=== PATIENT | male | born 1930 | race Caucasian/White ===

== ENCOUNTER 2016-10-14 13:29 | Emergency (ER) | payer MEDICARE, OTHER ==
[~2016-10-14] VITALS: Ht 170.2 cm; Wt 68.0 kg
[~2016-10-14 13:29] MED LIST: AMIO200T2 PO; DOCU240C14 PO; FINA5TAB4 PO; LISI-313 PO; MECL-77 PO; PANT40TA3 PO
[2016-10-14 13:32] VITALS: Ht 170.2 cm; Wt 68.0 kg
[2016-10-14] MEDS ORDERED: SOD CHLORIDE 0.9% 500 ML IV STA (14:46)
[2016-10-14 14:58] LABS: ADD SCAN DIFF NO
[2016-10-14 15:00] LABS: BASOPHILS % 0.2 % (0.0-2.0); EOSINOPHILS % 0.1 % (0.0-7.0); HEMATOCRIT 33.6 % (42.0-52.0); HEMOGLOBIN 10.7 g/dl (14.0-18.0); LYMPHOCYTES # 1.2 10^3/ul (0.8-2.9); LYMPHOCYTES % 7.4 % (15.0-51.0); MEAN CORPUSCULAR HEMOGLOBIN 31.2 pg (29.0-33.0); MEAN CORPUSCULAR HGB CONC 31.8 g/dl (32.0-37.0); MEAN PLATELET VOLUME 9.9 fl (7.4-10.4); MONOCYTE # 0.9 10^3/ul (0.3-0.9); MONOCYTES % 5.5 % (0.0-11.0); NEUTROPHIL # 13.7 10^3/ul (1.6-7.5); NEUTROPHILS % 86.2 % (39.0-77.0); PLATELET COUNT 265 10^3/UL (140-415); RED BLOOD COUNT 3.43 10^6/ul (4.70-6.10); RED CELL DISTRIBUTION WIDTH 13.5 % (11.5-14.5); WHITE BLOOD COUNT 15.8 10^3/ul (4.8-10.8)
--- NOTE | 2016-10-14 15:10 | RADRPT ---
PROCEDURE: XR Chest. CLINICAL INDICATION: Syncope TECHNIQUE: An AP view of the chest was obtained. COMPARISON: Chest x-ray dated 11/17/2013 FINDINGS: There is prominence of the interstitial markings. No pleural effusion or pneumothorax is seen. Th e cardiomediastinal silhouette is mildly enlarged . Calcifications are seen within the aortic arch. There is an ovoid right paratracheal density measuring 3.8 x 2.3 cm. The osseous structures demonst rate postsurgical changes from left shoulder arthroplasty IMPRESSION: 1. Mild prominence of the interstitial markings, may reflect mild underlying interstitial edema or chronic lung changes. No significant interval change. 2. Ovoid right paratracheal density measuring 3.[address] of the chest is recommended for fur ther evaluation. 3. Mild cardiomegaly and aortic atherosclerosis. RPTAT: HH .Georgia Charles MD, MD Date Time Electronically viewed and signed by .Georgia Charles MD, on 10/14/2016 15:10 .G/
[2016-10-14 15:15] LABS: CHLORIDE 104 mmol/L (97-110); SODIUM 142 mmol/L (135-144)
[2016-10-14 15:16] LABS: POTASSIUM 4.7 mmol/L (3.5-5.1)
[2016-10-14 15:18] LABS: CREATININE 2.27 mg/dl (0.61-1.24)
[2016-10-14 15:19] LABS: ANION GAP 19 (8-16); BLOOD UREA NITROGEN 44 mg/dl (7-20); CALCIUM 9.4 mg/dl (8.4-10.2); CARBON DIOXIDE 24 mmol/L (21-31); GLUCOSE 123 mg/dl (70-220)
[2016-10-14 15:42] LABS: TROPONIN-I < 0.012 ng/ml (0.00-0.12)
--- NOTE | 2016-10-14 16:02 | RADRPT ---
PROCEDURE: CT Head without. CLINICAL INDICATION: Headaches status post fall. TECHNIQUE: The study was performed utilizing a multi-slice, multidetector CT scanner. Direct spira l 1 mm axial sections were obtained through the head without the use of intravenous contrast materia l. 1 or more of the following dose reduction techniques were utilized: Automated exposure control, adjustment of the mA and/or kV according to patient's size, iterative reconstruction technique. Co lazaro and sagittal reformations were obtained. The images were reviewed on a PACS workstation. RADIATION DOSE: CTDIvol: 42.7 mGyDLP: 720.2 mGy-cm COMPARISON: No prior studies are available for comparison. FINDINGS: There is no intracranial hemorrhage, extra-axial fluid collection, mass lesion, midline shift or hyd rocephalus. There is mild to moderate prominence of the cerebral sulci, lateral and third ventricle s. There is moderate patchy periventricular and subcortical white matter hypodensity. There is mil d arteriosclerotic calcification of the parasellar internal carotid arteries. The judd-white matter differentiation is preserved. The basal cisterns are patent. The midline structures are intact. The orbits, calvarium and extracranial soft tissues are normal in appearance. The visualized paranas al sinuses, mastoid air cells and middle ear cavities are normally aerated. IMPRESSION: 1. No acute intracranial abnormality. No intracranial hemorrhage, extra-axial fluid collection, ma ss lesion or hydrocephalous. 2. Mild to moderate peripheral and central cerebral volume loss. 3. Moderate patchy periventricular and subcortical white matter hypodensity, likely related to staff climate scientist shannon microangiopathic changes. RPTAT: HGAS .Mark Osuna MD, MD Date Time Electronically viewed and signed by .Mark Osuna MD, MD on 10/14/2016 16:01 .S/
--- NOTE | 2016-10-14 16:21 | ERD ---
ER Documentation Chief Complaint Date/Time DATE: 10/14/16 TIME: 16:21 Chief Complaint fainted , fell backward hit his head on floor , c/o lt side pain HPI Patient is an 86-year-old male with hypertension who presents after he fainted. Please note the history and physical exam is limited secondary to the patient' s recall of the event. The patient lives alone. He "fainted". He does not know how long he was on the floor but had whole-body weakness and pain afterwards. He started new medications yesterday including tamsulosin, famotidine, and Anitiza. The patient has no bleeding. The patient was complaining of chest pain on the left side as well. He did break his glasses with a fall. The patient says that he would prefer to go home today and does not want to stay in the hospital. ROS All systems reviewed and are negative except as per history of present illness. Medications Home Meds Active Scripts Pantoprazole* (Protonix*) 40 Mg Tablet.dr, 40 MG PO DAILY for 28 Days, TAB Prov:DAVIS KIRBY MD 11/07/14 Reported Medications Docusate Calcium* (Docusate Calcium*) 240 Mg Capsule, 240 MG PO DAILY, CAP 11/04/14 Amiodarone Hcl* (Amiodarone Hcl*) 200 Mg Tablet, 200 MG PO DAILY, TAB 11/04/14 Finasteride* (Finasteride*) 5 Mg Tablet, 5 MG PO DAILY, TAB 03/01/14 Meclizine Hcl* (Meclizine Hcl*) 25 Mg Tablet, 25 MG PO DAILY Y for veritigo, TAB 03/01/14 Lisinopril* (Lisinopril*) 5 Mg Tablet, 5 MG PO DAILY, TAB 03/01/14 Allergies Allergies: Coded Allergies: No Known Allergy (Verified , 11/07/14) PMhx/Soc History of Surgery: Yes (Left hip surgery) Anesthesia Reaction: No Hx Neurological Disorder: No Hx Respiratory Disorders: No Hx Cardiac Disorders: No Hx Psychiatric Problems: No Hx Miscellaneous Medical Probl: No Hx Alcohol Use: No Hx Substance Use: No Hx Tobacco Use: No Smoking Status: Never smoker FmHx Family History: No diabetes Physical Exam Vitals Vital Signs Date Time Temp Pulse Resp B/P Pulse Ox O2 Delivery O2 Flow Rate FiO2 10/14/16 16:28 70 16 136/67 96 Room Air 10/14/16 14:56 68 18 120/56 96 Room Air 10/14/16 13:32 98.6 77 18 96/53 96 Physical Exam Const: No acute distress Head: Atraumatic Eyes: Normal Conjunctiva ENT: Normal External Ears, Nose and Mouth. Neck: Full range of motion..~ No meningismus. Resp: Clear to auscultation bilaterally Cardio: Regular rate and rhythm, no murmurs Abd: Soft, non tender, non distended. Normal bowel sounds Skin: No petechiae or rashes Back: No midline or flank tenderness Ext: No cyanosis, or edema Neur: Awake and alert Psych: Normal Mood and Affect Result Diagram: 10/14/16 1440 10/14/16 1440 Results 24 hrs Laboratory Tests Test 10/14/16 14:40 10/14/16 14:55 White Blood Count 15.810^3/ul Red Blood Count 3.4310^6/ul Hemoglobin 10.7g/dl Hematocrit 33.6% Mean Corpuscular Volume 98.0fl Mean Corpuscular Hemoglobin 31.2pg Mean Corpuscular Hemoglobin Concent 31.8g/dl Red Cell Distribution Width 13.5% Platelet Count 50953^3/UL Mean Platelet Volume 9.9fl Neutrophils % 86.2% Lymphocytes % 7.4% Monocytes % 5.5% Eosinophils % 0.1% Basophils % 0.2% Nucleated Red Blood Cells % 0.0/100WBC Neutrophils # 13.710^3/ul Lymphocytes # 1.210^3/ul Monocytes # 0.910^3/ul Eosinophils # 0.010^3/ul Basophils # 0.010^3/ul Nucleated Red Blood Cells # 0.010^3/ul Sodium Level 142mmol/L Potassium Level 4.7mmol/L Chloride Level 104mmol/L Carbon Dioxide Level 24mmol/L Anion Gap 19 Blood Urea Nitrogen 44mg/dl Creatinine 2.27mg/dl Glucose Level 123mg/dl Calcium Level 9.4mg/dl Troponin I < 0.012ng/ml Bedside Glucose 108mg/dL Current Medications Medications (Trade) Dose Ordered Sig/Sylvia Route PRN Reason Start Time Stop Time Status Last Admin Dose Admin Sodium Chloride (NS) 500 ml @ 500 mls/hr Q1H STAT IV 10/14/16 14:46 10/14/16 15:45 DC 10/14/16 15:02 Procedures/MDM EKG read by me: Rate/Rhythm: First-degree block a rate of 77 Intervals: Prolonged AK interval Impression: First-degree block without ischemia CT head shows no skull fracture or intracranial hemorrhage per radiology. Patient is a 86-year-old male with hypertension who presents with a fainting episode. This may be related to the new medications he was given however I did want to admit him to the hospital for cardiac monitoring given the syncope and chest pain. However the patient is refusing. He will be signing out AGAINST MEDICAL ADVICE. The patient has a leukocytosis but at this point I see no signs of obvious infection. He has anemia with a hemoglobin of 10.7 but does not require transfusion. He has chronic renal failure with a creatinine of 2.27 but has had elevated creatinine in the past as well. The patient will be discharged into the care of his daughter who is with him at that time. He can return for any worsening symptoms. He was given 500 mL normal saline fluid bolus. Departure Diagnosis: Primary Impression: Syncope Syncope type: unspecified Qualified Code: R55 - Syncope, unspecified syncope type Additional Impressions: Anemia Anemia type: unspecified type Qualified Code: D64.9 - Anemia, unspecified type Leukocytosis Leukocytosis type: unspecified Qualified Code: D72.829 - Leukocytosis, unspecified type Condition: Fair Patient Instructions: Syncope, Unk Cause Referrals: MOHAN FORTUNE MD (PCP) Additional Instructions: Call your primary care doctor TOMORROW for an appointment during the next 1-2 days.See the doctor sooner or return here if your condition worsens before your appointment time. CHUCK RUIZ MD Oct 14, 2016 16:21
[2016-10-14 16:28] VITALS: BP 136/67; PULSE 70; RESP 16
== END 2016-10-14 16:52 | disposition home or self-care (01) ==
LOC: E/R 13:29
DX: R55 Syncope and collapse (principal); D64.9 Anemia, unspecified; D72.829 Elevated white blood cell count, unspecified; I10 Essential (primary) hypertension
CPT/HCPCS: 36415; 70450; 71010; 80048; 82962; 84484; 85025; 93005; 99285; J7040

== ENCOUNTER 2016-12-09 17:46 | Inpatient (IN) | payer MEDICARE, OTHER ==
[~2016-12-09] VITALS: Ht 170.2 cm; Wt 66.0 kg
[2016-12-09] MEDS ORDERED: SOD CHLORIDE 0.9% 1,000 ML IV STA (19:47)
--- NOTE | 2016-12-09 20:48 | RADRPT ---
PROCEDURE: XR Chest. CLINICAL INDICATION: Abdominal pain. TECHNIQUE: Single frontal view. COMPARISON: 11/17/2013. FINDINGS: There is mild left basilar atelectasis. The lungs are otherwise clear. The heart is enlarged. Calcification is present in the aorta consistent with atherosclerosis. There is no pleural effusion or pneumothorax. There is left shoulder reverse arthroplasty. IMPRESSION: 1. Mild left basilar atelectasis. 2. Cardiomegaly and atherosclerosis. 3. A left shoulder reverse arthroplasty. RPTAT: QQ .Erik Rogers MD, MD Date Time Electronically viewed and signed by .Erik Rogers MD, MD on 12/09/2016 20:47 .R/
[2016-12-09 21:11] LABS: ADD SCAN DIFF NO
[2016-12-09 21:14] LABS: BASOPHILS % 0.3 % (0.0-2.0); EOSINOPHILS # 0.1 10^3/ul (0.0-0.5); EOSINOPHILS % 0.8 % (0.0-7.0); HEMATOCRIT 35.9 % (42.0-52.0); HEMOGLOBIN 10.9 g/dl (14.0-18.0); LYMPHOCYTES # 1.9 10^3/ul (0.8-2.9); LYMPHOCYTES % 18.4 % (15.0-51.0); MEAN CORPUSCULAR HEMOGLOBIN 29.8 pg (29.0-33.0); MEAN CORPUSCULAR HGB CONC 30.4 g/dl (32.0-37.0); MEAN CORPUSCULAR VOLUME 98.1 fl (82.0-101.0); MEAN PLATELET VOLUME 10.4 fl (7.4-10.4); MONOCYTE # 0.9 10^3/ul (0.3-0.9); MONOCYTES % 8.3 % (0.0-11.0); NEUTROPHIL # 7.4 10^3/ul (1.6-7.5); NEUTROPHILS % 71.7 % (39.0-77.0); PLATELET COUNT 276 10^3/UL (140-415); RED BLOOD COUNT 3.66 10^6/ul (4.70-6.10); RED CELL DISTRIBUTION WIDTH 13.5 % (11.5-14.5); WHITE BLOOD COUNT 10.4 10^3/ul (4.8-10.8)
[2016-12-09 21:17] LABS: ADD UMIC YES; UR ASCORBIC ACID NEGATIVE (NEGATIVE); UR BACTERIA FEW /HPF (NONE SEEN); UR BILIRUBIN (Dip) NEGATIVE (NEGATIVE); UR BLOOD (Dip) 1+ mg/dL (NEGATIVE); UR CLARITY SLIGHTLY CLOUDY (CLEAR); UR COLOR YELLOW (YELLOW); UR GLUCOSE (Dip) NEGATIVE (NEGATIVE); UR KETONES (Dip) NEGATIVE (NEGATIVE); UR LEUKOCYTE ESTERASE (Dip) NEGATIVE Leu/ul (NEGATIVE); UR MUCUS FEW /HPF (NONE SEEN); UR NITRITE (Dip) NEGATIVE (NEGATIVE); UR RBC 3 /HPF (0-5); UR SPECIFIC GRAVITY (Dip) 1.018 (1.003-1.030); UR TOTAL PROTEIN (Dip) 1+ mg/dl (NEGATIVE); UR UROBILINOGEN (Dip) NEGATIVE (NEGATIVE)
[2016-12-09 21:42] LABS: ALANINE AMINOTRANSFERASE 24 IU/L (13-69); ALBUMIN 4.7 g/dl (3.3-4.9); ALBUMIN/GLOBULIN RATIO 1.95; ALKALINE PHOSPHATASE 73 IU/L (42-121); ANION GAP 16 (8-16); ASPARTATE AMINO TRANSFERASE 22 IU/L (15-46); BILIRUBIN,INDIRECT 0.1 mg/dl (0-1.1); BILIRUBIN,TOTAL 0.1 mg/dl (0.2-1.3); BLOOD UREA NITROGEN 48 mg/dl (7-20); CALCIUM 9.4 mg/dl (8.4-10.2); CARBON DIOXIDE 21 mmol/L (21-31); CHLORIDE 110 mmol/L (97-110); CREATININE 2.83 mg/dl (0.61-1.24); GLUCOSE 104 mg/dl (70-220); POTASSIUM 5.6 mmol/L (3.5-5.1); SODIUM 141 mmol/L (135-144); TOTAL PROTEIN 7.1 g/dl (6.1-8.1)
[2016-12-09 21:54] LABS: TROPONIN-I < 0.012 ng/ml (0.00-0.12)
[2016-12-09] MEDS ORDERED: CEPHALEXIN 500 MG CAP PO ONE (22:00)
--- NOTE | 2016-12-09 22:26 | ERD ---
ER Documentation Chief Complaint Date/Time DATE: 12/09/16 TIME: 22:10 Chief Complaint dizzy,shaky, back pain,malagon HPI 86-year-old man here for evaluation of near syncopal episode while urinating. He states he felt dizzy afterwards but denies loss of consciousness. He states he has had some intermittent chills and bilateral flank pain. He denies hematuria or dysuria, no blood per rectum or melena, no chest pain or shortness of breath, no vomiting or diarrhea. ROS All systems reviewed and are negative except as per history of present illness. Medications Home Meds Active Scripts Pantoprazole* (Protonix*) 40 Mg Tablet.dr, 40 MG PO DAILY for 28 Days, TAB Prov:DAVIS KIRBY MD 11/07/14 Reported Medications Docusate Calcium* (Docusate Calcium*) 240 Mg Capsule, 240 MG PO DAILY, CAP 11/04/14 Amiodarone Hcl* (Amiodarone Hcl*) 200 Mg Tablet, 200 MG PO DAILY, TAB 11/04/14 Finasteride* (Finasteride*) 5 Mg Tablet, 5 MG PO DAILY, TAB 03/01/14 Meclizine Hcl* (Meclizine Hcl*) 25 Mg Tablet, 25 MG PO DAILY Y for veritigo, TAB 03/01/14 Lisinopril* (Lisinopril*) 5 Mg Tablet, 5 MG PO DAILY, TAB 03/01/14 Allergies Allergies: Coded Allergies: No Known Allergy (Verified , 11/07/14) PMhx/Soc Hypertension, atrial fibrillation rate-controlled with amiodarone, peptic ulcer disease with previous GI bleeding, gastroesophageal reflux disease, BPH, history of a left hip fracture, previous syncope, chronic renal insufficiency with creatinine levels between 1.3-2.3, mild dementia History of Surgery: Yes (Left hip surgery) Anesthesia Reaction: No Hx Neurological Disorder: No Hx Respiratory Disorders: No Hx Cardiac Disorders: No Hx Psychiatric Problems: No Hx Miscellaneous Medical Probl: No Hx Alcohol Use: No Hx Substance Use: No Hx Tobacco Use: No Smoking Status: Unknown if ever smoked FmHx Family History: No diabetes Physical Exam Vitals Vital Signs Date Time Temp Pulse Resp B/P Pulse Ox O2 Delivery O2 Flow Rate FiO2 12/09/16 21:42 65 16 175/106 100 Room Air 12/09/16 17:49 98.7 77 18 137/62 99 Physical Exam GENERAL: Elderly man, well-nourished, appears dehydrated, afebrile HEENT: Dry mucous membranes, pink conjunctiva, no cervical spine tenderness, no scalp contusion NEURO: Alert and oriented 3, cranial nerves II through XII intact bilaterally and normal, pupils equal round reactive to light, no focal deficits or facial asymmetry, gait normal CARDIAC: Regular rate and rhythm, no murmurs rubs or gallops LUNGS: Clear bilaterally no wheezing crackles or stridor ABDOMEN: Soft nontender, no guarding, no rigidity, no rebound, no psoas sign no obturator sign. SKIN: Warm and dry to touch, no abrasions, contusions, or hematomas, no lacerations, no ecchymosis, no target lesions, and without ulcers EXTREMITIES: No clubbing cyanosis or edema, calves are bilaterally symmetrical, no Homans sign, no popliteal cord sign. Distal pulses equal and bilateral PSYCH: Normal affect without agitation or irritability Result Diagram: 12/09/16201912/09/162019 Results 24 hrs Laboratory Tests Test 12/09/16 20:20 White Blood Count 10.410^3/ul Red Blood Count 3.6610^6/ul Hemoglobin 10.9g/dl Hematocrit 35.9% Mean Corpuscular Volume 98.1fl Mean Corpuscular Hemoglobin 29.8pg Mean Corpuscular Hemoglobin Concent 30.4g/dl Red Cell Distribution Width 13.5% Platelet Count 41306^3/UL Mean Platelet Volume 10.4fl Neutrophils % 71.7% Lymphocytes % 18.4% Monocytes % 8.3% Eosinophils % 0.8% Basophils % 0.3% Nucleated Red Blood Cells % 0.0/100WBC Neutrophils # 7.410^3/ul Lymphocytes # 1.910^3/ul Monocytes # 0.910^3/ul Eosinophils # 0.110^3/ul Basophils # 0.010^3/ul Nucleated Red Blood Cells # 0.010^3/ul Urine Color YELLOW Urine Clarity SLIGHTLY CLOUDY Urine pH 5.0 Urine Specific [place] 1.018 Urine Ketones NEGATIVEmg/dL Urine Nitrite NEGATIVEmg/dL Urine Bilirubin NEGATIVEmg/dL Urine Urobilinogen NEGATIVEmg/dL Urine Leukocyte Esterase NEGATIVELeu/ul Urine Microscopic RBC 3/HPF Urine Microscopic WBC 3/HPF Urine Bacteria FEW/HPF Urine Mucus FEW/HPF Urine Hemoglobin 1+mg/dL Urine Glucose NEGATIVEmg/dL Urine Total Protein 1+mg/dl Sodium Level 141mmol/L Potassium Level 5.6mmol/L Chloride Level 110mmol/L Carbon Dioxide Level 21mmol/L Anion Gap 16 Blood Urea Nitrogen 48mg/dl Creatinine 2.83mg/dl Glucose Level 104mg/dl Calcium Level 9.4mg/dl Total Bilirubin 0.1mg/dl Direct Bilirubin 0.00mg/dl Indirect Bilirubin 0.1mg/dl Aspartate Amino Transf (AST/SGOT) 22IU/L Alanine Aminotransferase (ALT/SGPT) 24IU/L Alkaline Phosphatase 73IU/L Troponin I < 0.012ng/ml Total Protein 7.1g/dl Albumin 4.7g/dl Globulin 2.40g/dl Albumin/Globulin Ratio 1.95 Lipase 192U/L Current Medications Medications (Trade) Dose Ordered Sig/Sylvia Route PRN Reason Start Time Stop Time Status Last Admin Dose Admin Sodium Chloride (NS) 1,000 ml @ 1,000 mls/hr Q1H STAT IV 12/09/16 19:47 12/09/16 20:46 DC 12/09/16 20:27 Cephalexin (Keflex) 500 mg ONCE ONCE PO 12/09/16 22:00 12/09/16 22:01 DC Procedures/MDM IV line was established patient was placed on surveillance monitor rhythm strip revealed a sinus rhythm at about 70 bpm with upright P and T waves. Patient was afebrile. For dehydration I administered 2 L normal saline intravenously. EKG performed, read by me revealed a normal sinus rhythm at 65 bpm, normal axis with a first-degree atrial ventricular block and a [place] interval of 246 ms, narrow QRS complex, no concerning ST elevations or depressions noted. One view chest x-ray performed, read by me as no acute infiltrates, no pneumothorax, no end of the diaphragm, and a prosthesis in the left humerus. CBC was unremarkable, electrolytes revealed dehydration and worsening renal function with a BUN/creatinine of 48/2.8, potassium elevated at 5.6, liver function tests normal, troponin negative. Urine analysis concerning for early urinary tract infection. I administered cephalexin 500 mg p.o. Patient experienced a near syncopal episode today while urinating and feels dizzy, he presented dehydrated and was found to have an early urinary tract infection and worsening renal function. He will be admitted to telemetry setting for continued medical management and IV hydration. Critical Care: Time: 34 minutes, this was time separate from other billable procedures. Treatments/Evaluations: Close monitoring and treatment of unstable vital signs, cardiorespiratory, and neurologic status, while maintaining tight balance of fluid, respiratory, and cardiac interventions. Departure Diagnosis: Primary Impression: Near syncope Additional Impressions: Dizziness Dehydration Hyperkalemia Acute kidney injury UTI (urinary tract infection) Urinary tract infection type: acute cystitis Hematuria presence: without hematuria Qualified Code: N30.00 - Acute cystitis without hematuria Condition: MOHAN Sanz MD Dec 09, 2016 22:21
[2016-12-09] MEDS ORDERED: SOD CHLORIDE 0.9% 1,000 ML IV ONE (22:30)
[2016-12-10 08:00] VITALS: BP 148/72; RESP 20
[2016-12-10] MEDS ORDERED: LISI20TA11 PO (10:08)
[2016-12-10] MEDS ORDERED: ASPI81TA3 PO (10:09)
[2016-12-10] MEDS ORDERED: BACL10TA PO (10:09)
[2016-12-10] MEDS ORDERED: MAGNESIUM HYDROXIDE 30ML CUP PO PRN (11:00)
[2016-12-10] MEDS ORDERED: DOCUSATE SODIUM 100 MG CAP PO PRN (11:00)
[2016-12-10] MEDS ORDERED: NACL 0.9% 3 ML SYG IV SCH (11:00)
[2016-12-10] MEDS ORDERED: ONDANSETRON 4 MG INJ IV PRN (11:00)
[2016-12-10] MEDS ORDERED: ACETAMINOPHEN 325 MG TAB PO PRN (11:00)
[2016-12-10] MEDS: SOD CHLORIDE 0.9% 1,000 ML IV SCH (11:43)
[2016-12-10 15:00] VITALS: TEMP 97.9
[2016-12-10 20:00] VITALS: BP 148/70; PULSE 55; RESP 20; Ht 170.2 cm; Wt 66.0 kg
[2016-12-10 20:43] VITALS: PULSE 48
[2016-12-10 22:10] LABS: CALCIUM 8.8 mg/dl (8.4-10.2); CREATININE 1.77 mg/dl (0.61-1.24); POTASSIUM 5.4 mmol/L (3.5-5.1)
[2016-12-10] MEDS ORDERED: NA POLYST SULFON 15 GM/60 ML BTL PO ONE (23:00)
[2016-12-11] VITALS (17 sets, daily range): BP systolic 142–185; BP diastolic 60–87; PULSE 41–82; RESP 16–20
[2016-12-11] MEDS: LISINOPRIL 20 MG TAB PO SCH ×3 (00:32→23:10)
--- NOTE | 2016-12-11 01:16 | HP ---
DATE OF ADMISSION: 12/09/2016 HISTORY OF PRESENT ILLNESS: Dennis Deluna is an elderly male who has a history of anemia, history of gastritis, history of Schatzki ring, leukocytosis , hypertension, history of AFib, peptic ulcer disease, history of BPH, cardiac arrhythmia. The patient presented to this hospital. The patient presented for evaluation of near syncopal episode while urinating. He felt dizzy afterward, and he denies any loss of consciousness. He had some intermittent chills and bilateral flank pain per ER note and no fever or chills. The patient was seen in the emergency room and waiting for a bed. The patient's laboratory data shows WBC 10.4, hematocrit 35.9. Potassium 5.6, sodium 141, BUN 48, creatinine 2.83. The patient's laboratory data are pending for today, and patient is being admitted for further management. PAST MEDICAL HISTORY: As mentioned above. History of Schatzki ring. History of BPH, hypertension, dizziness. ALLERGY HISTORY: NEGATIVE. FAMILY HISTORY: Negative. SOCIAL HISTORY: Negative. MEDICATION HISTORY: 1. Aspirin. 2. Baclofen. 3. Proscar. 4. asa 5. Meclizine. REVIEW OF SYSTEMS: HEENT: Unremarkable. RESPIRATORY: Unremarkable. CARDIOVASCULAR: . ABDOMEN: Dyspepsia. EXTREMITIES: No swelling. CENTRAL NERVOUS SYSTEM: Unremarkable. PHYSICAL EXAMINATION: GENERAL: The patient is thin-looking male, awake, alert. VITAL SIGNS: Stable. HEENT: Head is atraumatic, normocephalic. Pupils are equal, reactive to light. No pallor, conjunctival icterus. NECK: Supple. LUNGS: Clear. CARDIOVASCULAR: S1, S2 normal. ABDOMEN: Soft. Bowel sounds present. No palpable mass. EXTREMITIES: No cyanosis, clubbing or edema. CENTRAL NERVOUS SYSTEM: The patient is awake, alert. No focal deficit. LABORATORY DATA: As mentioned above. IMPRESSION: The patient has: 1. Hyperkalemia. 2. Urinary tract infection. 3. Dehydration. 4. Acute kidney injury. 5. Anemia. 6. History of Schatzki ring. PLAN: UA and culture, sensitivity. IV fluid, antibiotic. The patient will be monitored on telemetry floor. The patient will have workup of dizziness ordered if the patient has further symptoms. Dictated By: DAVIS EMMANUEL/AMARILIS Conf#: [id number] [facility]#: [id number] MTDD
[2016-12-11] MEDS: LEVOFLOXACIN 500 MG TAB PO SCH (06:23)
[2016-12-11] MEDS: SOD CHLORIDE 0.9% 1,000 ML IV SCH (06:24)
[2016-12-11 07:29] LABS: ADD SCAN DIFF NO
[2016-12-11 07:39] LABS: BASOPHILS % 0.4 % (0.0-2.0); EOSINOPHILS # 0.2 10^3/ul (0.0-0.5); EOSINOPHILS % 2.4 % (0.0-7.0); HEMATOCRIT 33.3 % (42.0-52.0); HEMOGLOBIN 10.3 g/dl (14.0-18.0); LYMPHOCYTES # 2.3 10^3/ul (0.8-2.9); LYMPHOCYTES % 23.7 % (15.0-51.0); MEAN CORPUSCULAR HEMOGLOBIN 30.7 pg (29.0-33.0); MEAN CORPUSCULAR HGB CONC 30.9 g/dl (32.0-37.0); MEAN CORPUSCULAR VOLUME 99.1 fl (82.0-101.0); MEAN PLATELET VOLUME 10.5 fl (7.4-10.4); MONOCYTE # 0.8 10^3/ul (0.3-0.9); MONOCYTES % 8.6 % (0.0-11.0); NEUTROPHIL # 6.3 10^3/ul (1.6-7.5); NEUTROPHILS % 64.6 % (39.0-77.0); PLATELET COUNT 221 10^3/UL (140-415); RED BLOOD COUNT 3.36 10^6/ul (4.70-6.10); RED CELL DISTRIBUTION WIDTH 13.5 % (11.5-14.5); WHITE BLOOD COUNT 9.8 10^3/ul (4.8-10.8)
[2016-12-11] MEDS: FINASTERIDE 5 MG TAB PO SCH (08:27)
[2016-12-11] MEDS: ASPIRIN 81 MG TAB PO SCH (08:28)
[2016-12-11] MEDS ORDERED: LISINOPRIL 20 MG TAB PO SCH (09:00)
[2016-12-11] MEDS: hydrALAzine 20 MG INJ IV PRN ×2 (11:41→19:49)
--- NOTE | 2016-12-11 16:02 | CONS ---
Date/Time of Note Date/Time of Note DATE: 12/11/16 TIME: 15:55 Assessment/Plan Assessment/Plan Chief Complaint/Hosp Course IMP: 1.Near syncope/dizziness 2.BRadycardia to 50's and high 40's 3. HTN 4.BPH 5.Schatzki ring 6.anemia 7.REnal failure Recc: -Tele -Continue zestril and add CCB to improve BP control -Check echo -Complete jonathon -check orthostatics -Contnue abx's and f/u cx data Problems: Consultation Date/Type/Reason Admit Date/Time Dec 11, 2016 at 11:17 Date of Consultation: Dec 11, 2016 Type of Consultation: cardiology Reason for Consultation near syncope/bradycardia/HTN Referring Provider: DAVIS KIRBY of Present Illness Dennis Deluna is an 86 y/o male who has a history of anemia, history of gastritis, history of Schatzki ring, leukocytosis, hypertension, history of AFib , peptic ulcer disease, history of BPH, cardiac arrhythmia. The patient presented for evaluation of near syncopal episode while urinating. He felt dizzy afterward, and he denies any loss of consciousness. He had some intermittent chills and bilateral flank pain per ER note and no fever or chills. The patient was seen in the emergency room and waiting for a bed. The patient's laboratory data shows WBC 10.4, hematocrit 35.9. Potassium 5.6, sodium 141, BUN 48, creatinine 2.83. The patient's laboratory data are pending for today, and patient is being admitted for further management. Upon arrival on telemetry was le to 50's but hypertensive Constitutional: no complaints Eyes: no complaints ENT: no complaints Respiratory: no complaints Cardiovascular: no complaints Gastrointestinal: other (nausea) Genitourinary: no complaints Musculoskeletal: bone/joint pain Neurologic: dizziness Psychological: no complaints Immunologic: no complaints Past Medical History Medical History: hypertension, other (BPH, arrythmia, gastritis) Past Surgical History Past Surgical Hx: no surgical history Family History Significant Family History: no pertinent family hx Social History Smoking Status: Never smoker Exam/Review of Systems Vital Signs Vitals Vital Signs Date Time Temp Pulse Resp B/P Pulse Ox O2 Delivery O2 Flow Rate FiO2 12/11/16 15:39 98.3 70 16 161/69 97 12/11/16 07:40 Nasal Cannula 2.0 Intake and Output 12/10/16 12/10/16 12/11/16 15:00 23:00 07:00 Intake Total 1300 ml Output Total 650 ml Balance 650 ml Exam Constitutional: alert Psych: no complaints Head: normocephalic ENMT: mucosa pink and moist Neck: jvd (9 cm water), supple Respiratory: diminished breath sounds Cardiovascular: regular rate and rhythm Gastrointestinal: non-tender, soft Musculoskeletal: muscle weakness (mild generalized) Extremities: edema (none) Neurological: other (No focal deficits) Results Result Diagram: 12/11/16 0710 12/10/16 2134 Results 24 hrs Laboratory Tests Test 12/10/16 21:34 12/11/16 07:10 Sodium Level 143 Potassium Level 5.4 H Chloride Level 114 H Carbon Dioxide Level 24 Anion Gap 10 # Blood Urea Nitrogen 36 #H Creatinine 1.77 #H Glucose Level 99 Calcium Level 8.8 White Blood Count 9.8 Red Blood Count 3.36 L Hemoglobin 10.3 L Hematocrit 33.3 L Mean Corpuscular Volume 99.1 Mean Corpuscular Hemoglobin 30.7 Mean Corpuscular Hemoglobin Concent 30.9 L Red Cell Distribution Width 13.5 Platelet Count 221 Mean Platelet Volume 10.5 H Neutrophils % 64.6 Lymphocytes % 23.7 Monocytes % 8.6 Eosinophils % 2.4 Basophils % 0.4 Nucleated Red Blood Cells % 0.0 Neutrophils # 6.3 Lymphocytes # 2.3 Monocytes # 0.8 Eosinophils # 0.2 Basophils # 0.0 Nucleated Red Blood Cells # 0.0 Medications Medications Current Medications Aspirin (Aspirin) 81 mg DAILY PO Last administered on 12/11/16 08:28; Admin Dose 81 MG; Start 12/11/16 at 09:00 Finasteride (Proscar) 5 mg DAILY PO Last administered on 12/11/16 08:27; Admin Dose 5 MG; Start 12/11/16 at 09:00 Meclizine HCl 25 mg 25 mg TID PRN PO veritigo; Start 12/10/16 at 11:00 Sodium Chloride (NS) 1,000 ml @ 50 mls/hr Q20H IV Last administered on 06:24; Admin Dose 50 MLS/HR; Start 12/10/16 at 11:00 Ondansetron HCl (Zofran Inj) 4 mg Q6H PRN IV NAUSEA AND/OR VOMITING; Start at 11:00 Acetaminophen (Tylenol Tab) 650 mg Q6H PRN PO PAIN LEVEL 1-3 OR FEVER; Start at 11:00 Docusate Sodium (Colace) 100 mg Q12H PRN PO CONSTIPATION; Start 12/10/16 at 11: 00 Magnesium Hydroxide (Milk Of Mag) 30 ml DAILY PRN PO CONSTIPATION; Start at 11:00 Levofloxacin (Levaquin) 500 mg DAILY@06 PO Last administered on 12/11/16 06:23 ; Admin Dose 500 MG; Start 12/11/16 at 06:00 Lisinopril (Zestril) 20 mg DAILY PO Last administered on 12/11/16 06:47; Admin Dose 20 MG; Start 12/11/16 at 00:30 Hydralazine HCl (Apresoline) 10 mg Q6H PRN IV SBP ABOVE 165 Last administered on 12/11/16 11:41; Admin Dose 10 MG; Start 12/11/16 at 11:30 KATY MANN Dec 11, 2016 16:02
--- NOTE | 2016-12-11 18:56 | PN ---
Date/Time of Note Date/Time of Note DATE: 12/11/16 TIME: 18:55 Assessment/Plan VTE Prophylaxis VTE Prophylaxis Intervention: other Lines/Catheters IV [facility]ter [facility] (from [facility]): Saline Lock Urinary Cath still in place: No Assessment/Plan Chief Complaint/Hosp Course IMPRESSION: The patient has: 1. Hyperkalemia. 2. Urinary tract infection. 3. Dehydration. 4. Acute kidney injury. 5. Anemia. 6. History of Schatzki ring. PLAN CK BMP BP MEDS Problems: Subjective 24 Hr Interval Summary Respiratory: no complaints Cardiovascular: no complaints Exam/Review of Systems Vital Signs Vitals Vital Signs Date Time Temp Pulse Resp B/P Pulse Ox O2 Delivery O2 Flow Rate FiO2 12/11/16 16:26 59 12/11/16 15:39 98.3 16 161/69 97 12/11/16 07:40 Nasal Cannula 2.0 Intake and Output 12/10/16 12/10/16 12/11/16 15:00 23:00 07:00 Intake Total 1300 ml Output Total 650 ml Balance 650 ml Exam Neck: supple Respiratory: clear to auscultation Cardiovascular: regular rate and rhythm Gastrointestinal: soft Musculoskeletal: nl extremities to inspection Extremities: normal pulses Results Result Diagram: 12/11/16 0710 12/10/16 2134 Results 24 hrs Laboratory Tests Test 12/10/16 21:34 12/11/16 07:10 12/11/16 16:15 Sodium Level 143 Potassium Level 5.4 H Chloride Level 114 H Carbon Dioxide Level 24 Anion Gap 10 # Blood Urea Nitrogen 36 #H Creatinine 1.77 #H Glucose Level 99 Calcium Level 8.8 White Blood Count 9.8 Red Blood Count 3.36 L Hemoglobin 10.3 L Hematocrit 33.3 L Mean Corpuscular Volume 99.1 Mean Corpuscular Hemoglobin 30.7 Mean Corpuscular Hemoglobin Concent 30.9 L Red Cell Distribution Width 13.5 Platelet Count 221 Mean Platelet Volume 10.5 H Neutrophils % 64.6 Lymphocytes % 23.7 Monocytes % 8.6 Eosinophils % 2.4 Basophils % 0.4 Nucleated Red Blood Cells % 0.0 Neutrophils # 6.3 Lymphocytes # 2.3 Monocytes # 0.8 Eosinophils # 0.2 Basophils # 0.0 Nucleated Red Blood Cells # 0.0 Thyroid Stimulating Hormone (TSH) 1.310 Medications Medications Current Medications Aspirin (Aspirin) 81 mg DAILY PO Last administered on 12/11/16 08:28; Admin Dose 81 MG; Start 12/11/16 at 09:00 Finasteride (Proscar) 5 mg DAILY PO Last administered on 12/11/16 08:27; Admin Dose 5 MG; Start 12/11/16 at 09:00 Meclizine HCl 25 mg 25 mg TID PRN PO veritigo; Start 12/10/16 at 11:00 Sodium Chloride (NS) 1,000 ml @ 50 mls/hr Q20H IV Last administered on 06:24; Admin Dose 50 MLS/HR; Start 12/10/16 at 11:00 Ondansetron HCl (Zofran Inj) 4 mg Q6H PRN IV NAUSEA AND/OR VOMITING; Start at 11:00 Acetaminophen (Tylenol Tab) 650 mg Q6H PRN PO PAIN LEVEL 1-3 OR FEVER; Start at 11:00 Docusate Sodium (Colace) 100 mg Q12H PRN PO CONSTIPATION; Start 12/10/16 at 11: 00 Magnesium Hydroxide (Milk Of Mag) 30 ml DAILY PRN PO CONSTIPATION; Start at 11:00 Levofloxacin (Levaquin) 500 mg DAILY@06 PO Last administered on 12/11/16 06:23 ; Admin Dose 500 MG; Start 12/11/16 at 06:00 Hydralazine HCl (Apresoline) 10 mg Q6H PRN IV SBP ABOVE 165 Last administered on 12/11/16 11:41; Admin Dose 10 MG; Start 12/11/16 at 11:30 Lisinopril (Zestril) 20 mg BID PO ; Start 12/11/16 at 21:00 DAVIS KIRBY MD Dec 11, 2016 18:56
[2016-12-11 19:15] LABS: CREATINE KINASE 71 IU/L (23-200)
[2016-12-11 19:16] LABS: CREATININE 1.64 mg/dl (0.61-1.24); POTASSIUM 4.6 mmol/L (3.5-5.1)
[2016-12-11 19:32] LABS: CK-MB 1.44 ng/ml (0.0-2.4); TROPONIN-I < 0.012 ng/ml (0.00-0.12)
--- NOTE | 2016-12-11 20:21 | RADRPT ---
PROCEDURE: Renal US. CLINICAL INDICATION: Acute kidney injury TECHNIQUE: Multiple sonographic images of the kidneys and bladder were obtained. The images were reviewed on a PACS workstation. COMPARISON: 11/05/2014 FINDINGS: The right kidney measures 9 cm and the left kidney 8.8 cm in length. Renal cortical thinning is sherri arent bilaterally. No renal mass, calculus or hydronephrosis is seen bilaterally. There is appeara nce of mild increased renal cortical echogenicity suggestive of medical renal disease. No abnormali ty of the bladder is seen. Bladder volume is 95 cc. IMPRESSION: Mild increased renal cortical echogenicity suggestive of medical renal disease. Bilateral renal cor tical thinning. No significant change compared to previous study. Please see above. RPTAT: HJES .Bandar Hammond MD, Date Time Electronically viewed and signed by .Bandar Hammond MD, on 12/11/2016 20:21 .S/
[2016-12-12] VITALS (17 sets, daily range): BP systolic 112–200; BP diastolic 57–91; PULSE 45–81; RESP 16–21
[2016-12-12] MEDS: SOD CHLORIDE 0.9% 1,000 ML IV SCH ×2 (03:00→21:43)
[2016-12-12 03:31] LABS: TROPONIN-I 0.032 ng/ml (0.00-0.12)
[2016-12-12 03:56] LABS: CK-MB 1.18 ng/ml (0.0-2.4)
[2016-12-12] MEDS: LEVOFLOXACIN 500 MG TAB PO SCH (05:56)
[2016-12-12] MEDS: hydrALAzine 20 MG INJ IV PRN ×3 (05:57→21:43)
[2016-12-12] MEDS: ASPIRIN 81 MG TAB PO SCH (08:39)
[2016-12-12] MEDS: LISINOPRIL 20 MG TAB PO SCH ×2 (08:39→20:48)
[2016-12-12] MEDS: FINASTERIDE 5 MG TAB PO SCH (08:39)
[2016-12-12 08:57] LABS: TROPONIN-I 0.038 ng/ml (0.00-0.12)
[2016-12-12 08:59] LABS: CK-MB 1.55 ng/ml (0.0-2.4)
[2016-12-12 09:27] LABS: CALCIUM 9.6 mg/dl (8.4-10.2); CREATININE 1.39 mg/dl (0.61-1.24); POTASSIUM 4.5 mmol/L (3.5-5.1)
--- NOTE | 2016-12-12 10:34 | RADRPT ---
Vent Rate: 83 bpm RR Interval: 0 msec KS Interval: 180 msec QRS Duration: 70 msec QT Interval: 406 msec QTC Interval: 477 msec P-R-T Daykin: 30 - 7 - 24 degrees Sinus rhythm with fusion complexes Nonspecific ST abnormality Abnormal ECG Electronically Signed By: Chai Duenas [id number]
--- NOTE | 2016-12-12 17:36 | CONS ---
Date/Time of Note Date/Time of Note DATE: 12/12/16 TIME: 17:32 Assessment/Plan Assessment/Plan Chief Complaint/Hosp Course IMP: 1.Near syncope/dizziness-negative orthostatics-negative trop x 3 2.BRadycardia to 50's and high 40's-now improved 3. HTN 4.BPH 5.Schatzki ring 6.anemia 7.REnal failure Recc: -Tele -Continue zestril and add CCB to improve BP control which has been very labile -F/U echo -Contnue abx's and f/u cx data Problems: Consultation Date/Type/Reason Admit Date/Time Dec 11, 2016 at 11:17 Initial Consult Date 12/11/16 Type of Consultation: cardiology Reason for Consultation near syncope Referring Provider: DAVIS KIRBY MD Exam/Review of Systems Vital Signs Vitals Vital Signs Date Time Temp Pulse Resp B/P Pulse Ox O2 Delivery O2 Flow Rate FiO2 12/12/16 16:01 98.0 71 16 163/77 97 12/12/16 05:00 Room Air 12/11/16 20:00 2.0 Intake and Output 12/11/16 12/11/16 12/12/16 14:59 22:59 06:59 Intake Total 1250 ml Output Total 850 ml Balance 400 ml Exam Review of Systems: CONSTITUTIONAL: No fevers, chills. PULMONARY: No sob CARDIOVASCULAR: No chest pain/palpitations GASTROINTESTINAL: No nausea/vomiting. GENITOURINARY: No hematuria/dysuria. MUSCULOSKELETAL: No myagias/arthalgias. PSYCHIATRIC: The patient denies depression. NEUROLOGIC: No weakness Constitutional: alert Psych: no complaints Head: normocephalic ENMT: mucosa pink and moist Neck: jvd, supple Respiratory: diminished breath sounds Cardiovascular: regular rate and rhythm Gastrointestinal: non-tender, soft Musculoskeletal: muscle tone Extremities: edema (none) Neurological: other (NO focal deficit) Results Result Diagram: 12/11/16 0710 12/12/16 0803 Results 24 hrs Laboratory Tests Test 12/11/16 18:05 12/12/16 01:20 12/12/16 08:03 Sodium Level 142 142 Potassium Level 4.6 4.5 Chloride Level 109 110 Carbon Dioxide Level 25 21 Anion Gap 13 16 Blood Urea Nitrogen 29 H 23 H Creatinine 1.64 H 1.39 H Glucose Level 97 95 Calcium Level 9.0 9.6 Creatine Kinase 71 61 64 Creatine Kinase Index 2.0 1.9 2.4 Creatinine Kinase MB (Mass) 1.44 1.18 1.55 Troponin I < 0.012 0.032 0.038 Medications Medications Current Medications Aspirin (Aspirin) 81 mg DAILY PO Last administered on 12/12/16 08:39; Admin Dose 81 MG; Start 12/11/16 at 09:00 Finasteride (Proscar) 5 mg DAILY PO Last administered on 12/12/16 08:39; Admin Dose 5 MG; Start 12/11/16 at 09:00 Meclizine HCl 25 mg 25 mg TID PRN PO veritigo; Start 12/10/16 at 11:00 Sodium Chloride (NS) 1,000 ml @ 50 mls/hr Q20H IV Last administered on 06:24; Admin Dose 50 MLS/HR; Start 12/10/16 at 11:00 Ondansetron HCl (Zofran Inj) 4 mg Q6H PRN IV NAUSEA AND/OR VOMITING; Start at 11:00 Acetaminophen (Tylenol Tab) 650 mg Q6H PRN PO PAIN LEVEL 1-3 OR FEVER Last administered on 12/11/16 20:29; Admin Dose 650 MG; Start 12/10/16 at 11:00 Docusate Sodium (Colace) 100 mg Q12H PRN PO CONSTIPATION; Start 12/10/16 at 11: 00 Magnesium Hydroxide (Milk Of Mag) 30 ml DAILY PRN PO CONSTIPATION; Start at 11:00 Levofloxacin (Levaquin) 500 mg DAILY@06 PO Last administered on 12/12/16 05:56 ; Admin Dose 500 MG; Start 12/11/16 at 06:00 Hydralazine HCl (Apresoline) 10 mg Q6H PRN IV SBP ABOVE 165 Last administered on 12/12/16 05:57; Admin Dose 10 MG; Start 12/11/16 at 11:30 Lisinopril (Zestril) 20 mg BID PO Last administered on 12/12/16 08:39; Admin Dose 20 MG; Start 12/11/16 at 21:00 KATY MANN Dec 12, 2016 17:36
--- NOTE | 2016-12-12 19:59 | RADRPT ---
Echocardiogram Report Patient Name: CELE ROWE Gender: Male Date: 1930 Study Date: 12-Dec-2016 Laborer/Grade Check: Linda Muse [facility] Location: 5547 Ref. Physician: KATY GR Quality: Technically Difficult Study Procedures: Transthoracic echocardiogram with complete 2D, M-Mode, and doppler examination. Indications: Syncope. 2D/M Mode Doppler Measurement Value Normal Ranges Measurement Value Normal Ranges LVIDd 2D 4.5 3.5 - 5.6 cm MARLON Vmax 1.2 cm2 LVIDs 2D 2.8 2.1 - 4.1 cm MARLON VTI 1.2 cm2 LVPWd 2D 1.5 0.6 - 1.1 cm AV Mean Fernando 2.8 m/sec IVSd 2D 1.5 0.6 - 1.1 cm AV Mean PG 36.1 mmHg AoR Diam 2D 3.2 2.0 - 3.7 cm AV Peak Fernando 4.1 m/sec EDV 2D 92.6 cm3 AV Peak PG 66.6 mmHg ESV 2D 22.9 cm3 AV VTI 88.8 cm LA Dimen 2D 3.3 2.3 - 4.0 cm LVOT Mean Fernando 1.2 m/sec LVOT Diam 2.0 cm LVOT Mean PG 6.9 mmHg LVOT Peak Fernando 1.6 m/sec LVOT Peak PG 10.4 mmHg LVOT VTI 40.1 cm MV E Peak Fernando 0.7 m/sec MV A Peak Fernando 0.6 m/sec MV E/A 1.2 MV Decel Time 261 msec MV Decel Coke 3 MV E/A 1.2 TR Peak Fernando 2.8 m/sec TR Peak PG 31.8 mmHg RVSP 35.0 mmHg Findings Left Ventricle: Normal left ventricular systolic function. Normal left ventricular cavity size. Moderate concentric left ventricular hypertrophy. Ejection fraction is visually estimated at 60 %. Tissue Doppler/Mitral Doppler indices are consistent with impaired relaxation (Stage I diastolic dysfunction). Right Ventricle: Normal right ventricular size. Normal right ventricular systolic function. Left Atrium: Upper limit of normal left atrial size. Right Atrium: The right atrium is normal in size. Mitral Valve: Mitral valve leaflets appear mildly thickened. Mild mitral annular calcification. Mild mitral valve regurgitation. Aortic Valve: Moderate to severe aortic stenosis. Aortic valve Max velocity 4.08 m/sec. Max PG 66.60 mmHg. Mean PG 36.10 mmHg. Aortic valve area 1.20 cm2. Aortic cusps appear moderately calcified. Mild aortic valve regurgitation. Tricuspid Valve: Normal appearance of the tricuspid valve. Estimated peak PA systolic pressure 35 mmHg. There is trace tricuspid regurgitation. Pulmonic Valve: Normal pulmonic valve appearance. Pericardium: Trivial pericardial effusion. Aorta: Normal aortic root. IVC: Normal size and normal respiratory collapse consistent with normal right atrial pressure. Conclusions 1.Normal left ventricular systolic function. Normal left ventricular cavity size. Moderate concentric left ventricular hypertrophy. Ejection fraction is visually estimated at 60 %. Tissue Doppler/Mitral Doppler indices are consistent with impaired relaxation (Stage I diastolic dysfunction). 2.Mild mitral valve regurgitation. 3.Moderate to severe aortic stenosis. Mean PG 36.10 mmHg. Aortic valve area 1.20 cm2. Aortic cusps appear moderately calcified. Mild aortic valve regurgitation. 4.Normal appearance of the tricuspid valve. Estimated peak PA systolic pressure 35 mmHg. There is trace tricuspid regurgitation. Electronically Signed By: Katy Gr 12-Dec-2016 19:58:53 -0700 Patient Name: CELE ROWE Study Date: 12-Dec-2016 [id number]
--- NOTE | 2016-12-12 23:14 | PN ---
Date/Time of Note Date/Time of Note DATE: 12/12/16 TIME: 23:13 Assessment/Plan VTE Prophylaxis VTE Prophylaxis Intervention: other Lines/Catheters IV [facility]from [facility] Peripheral IV Urinary Cath still in place: No Assessment/Plan Chief Complaint/Hosp Course IMPRESSION: The patient has: 1. Hyperkalemia.better 2. Urinary tract infection. 3. Dehydration. 4. Acute kidney injury. 5. Anemia. 6. History of Schatzki ring. 7 htn PLAN CK BMP BP MEDS bpmeds Problems: Subjective 24 Hr Interval Summary Cardiovascular: no complaints, No orthopenea Exam/Review of Systems Vital Signs Vitals Vital Signs Date Time Temp Pulse Resp B/P Pulse Ox O2 Delivery O2 Flow Rate FiO2 12/12/16 20:45 73 198/86 12/12/16 20:06 98.0 21 94 12/12/16 05:00 Room Air 12/11/16 20:00 2.0 Intake and Output 12/11/16 12/11/16 12/12/16 15:00 23:00 07:00 Intake Total 1250 ml Output Total 850 ml Balance 400 ml Exam Neck: supple Respiratory: clear to auscultation Cardiovascular: regular rate and rhythm Gastrointestinal: soft Results Result Diagram: 12/11/16 0710 12/12/16 0803 Results 24 hrs Laboratory Tests Test 12/12/16 01:20 12/12/16 08:03 Creatine Kinase 61 64 Creatine Kinase Index 1.9 2.4 Creatinine Kinase MB (Mass) 1.18 1.55 Troponin I 0.032 0.038 Sodium Level 142 Potassium Level 4.5 Chloride Level 110 Carbon Dioxide Level 21 Anion Gap 16 Blood Urea Nitrogen 23 H Creatinine 1.39 H Glucose Level 95 Calcium Level 9.6 Medications Medications Current Medications Aspirin (Aspirin) 81 mg DAILY PO Last administered on 12/12/16 08:39; Admin Dose 81 MG; Start 12/11/16 at 09:00 Finasteride (Proscar) 5 mg DAILY PO Last administered on 12/12/16 08:39; Admin Dose 5 MG; Start 12/11/16 at 09:00 Meclizine HCl 25 mg 25 mg TID PRN PO veritigo; Start 12/10/16 at 11:00 Sodium Chloride (NS) 1,000 ml @ 50 mls/hr Q20H IV Last administered on 21:43; Admin Dose 50 MLS/HR; Start 12/10/16 at 11:00 Ondansetron HCl (Zofran Inj) 4 mg Q6H PRN IV NAUSEA AND/OR VOMITING; Start at 11:00 Acetaminophen (Tylenol Tab) 650 mg Q6H PRN PO PAIN LEVEL 1-3 OR FEVER Last administered on 12/11/16 20:29; Admin Dose 650 MG; Start 12/10/16 at 11:00 Docusate Sodium (Colace) 100 mg Q12H PRN PO CONSTIPATION; Start 12/10/16 at 11: 00 Magnesium Hydroxide (Milk Of Mag) 30 ml DAILY PRN PO CONSTIPATION; Start at 11:00 Levofloxacin (Levaquin) 500 mg DAILY@06 PO Last administered on 12/12/16 05:56 ; Admin Dose 500 MG; Start 12/11/16 at 06:00 Lisinopril (Zestril) 20 mg BID PO Last administered on 12/12/16 20:48; Admin Dose 20 MG; Start 12/11/16 at 21:00 Amlodipine Besylate (Norvasc) 5 mg DAILY PO ; Start 12/13/16 at 09:00 Hydralazine HCl (Apresoline) 25 mg TID PO ; Start 12/13/16 at 09:00 Losartan Potassium (Cozaar) 25 mg DAILY PO ; Start 12/13/16 at 09:00 Hydralazine HCl (Apresoline) 20 mg Q6H PRN IV SBP>170 Last administered on 12/12 21:43; Admin Dose 20 MG; Start 12/12/16 at 21:30 DAVIS KIRBY MD Dec 12, 2016 23:14
[2016-12-13] VITALS (13 sets, daily range): BP systolic 123–169; BP diastolic 56–79; PULSE 54–77; RESP 18–22
[2016-12-13] MEDS: LEVOFLOXACIN 500 MG TAB PO SCH (06:24)
[2016-12-13] MEDS: AMLODIPINE 5 MG TAB PO SCH (08:08)
[2016-12-13] MEDS: LISINOPRIL 20 MG TAB PO SCH ×2 (08:10→21:31)
[2016-12-13] MEDS: FINASTERIDE 5 MG TAB PO SCH (08:11)
[2016-12-13] MEDS: ASPIRIN 81 MG TAB PO SCH (08:11)
[2016-12-13] MEDS ORDERED: LOSARTAN 25 MG TAB PO SCH (09:00)
[2016-12-13] MEDS ORDERED: SPIRONOLACTONE 25 MG TAB PO SCH (09:00)
--- NOTE | 2016-12-13 14:53 | CONS ---
Date/Time of Note Date/Time of Note DATE: 12/13/16 TIME: 14:45 Assessment/Plan Assessment/Plan Additional Assessment/Plan Dizziness and lightheadedness Hypertension Preserved ejection fraction Moderate aortic stenosis Bradycardia-resolved Acute kidney injury, improving -Our patient is followed by my colleague Dr. Alvarado and I was asked to take over cardiology care. Extensive discussion had with our patient via catering attendant and daughter Karina over the phone at [phone]. Blood pressure trend has improved. Patient currently on lisinopril and losartan. Would DC losartan at the current time. Was complaining of mild dizziness today with getting up out of bed. Decrease Lasix to daily. Given recent hyperkalemia, would DC Aldactone. In discussion with patient's daughter over the phone, there is concern for medication uncompliance as well as frequency of medications and likelihood of future compliance. Patient has been started on Norvasc, would continue and if blood pressure still not well controlled, there is room to increase the dose. Physical therapy evaluation. Consultation Date/Type/Reason Admit Date/Time Dec 11, 2016 at 11:17 Initial Consult Date 12/11/16 Type of Consultation: cardiology Referring Provider: DAVIS KIRBY MD 24 HR Interval Summary Free Text/Dictation Contacted by patient's family to take over caregiving patient of my colleague Dr. alvarado. Patient currently feeling better. Denies shortness of breath. Did have episode of lightheadedness when going to the commode and coming back into bed but feels better now. Denies any chest pain or shortness of breath. Exam/Review of Systems Vital Signs Vitals Vital Signs Date Time Temp Pulse Resp B/P Pulse Ox O2 Delivery O2 Flow Rate FiO2 12/13/16 12:31 68 12/13/16 12:20 98.6 20 123/56 94 12/12/16 05:00 Room Air 12/11/16 20:00 2.0 Intake and Output 12/12/16 12/12/16 12/13/16 15:00 23:00 07:00 Intake Total 1220 ml 925 ml Output Total 1650 ml 625 ml Balance -430 ml 300 ml Exam No apparent distress Constitutional: alert, oriented, well developed Head: normocephalic Neck: supple Respiratory: other (Coarse breath sounds bilaterally, no wheezing) Cardiovascular: other (S1-S2 heard), regular rate and rhythm, systolic murmur Gastrointestinal: bowel sounds, non-tender, other (No guarding), soft Extremities: other (No significant edema) Results Result Diagram: 12/11/16 0710 12/12/16 0803 Medications Medications Current Medications Aspirin (Aspirin) 81 mg DAILY PO Last administered on 12/13/16 08:11; Admin Dose 81 MG; Start 12/11/16 at 09:00 Finasteride (Proscar) 5 mg DAILY PO Last administered on 12/13/16 08:11; Admin Dose 5 MG; Start 12/11/16 at 09:00 Meclizine HCl 25 mg 25 mg TID PRN PO veritigo; Start 12/10/16 at 11:00 Sodium Chloride (NS) 1,000 ml @ 50 mls/hr Q20H IV Last administered on 21:43; Admin Dose 50 MLS/HR; Start 12/10/16 at 11:00 Ondansetron HCl (Zofran Inj) 4 mg Q6H PRN IV NAUSEA AND/OR VOMITING; Start at 11:00 Acetaminophen (Tylenol Tab) 650 mg Q6H PRN PO PAIN LEVEL 1-3 OR FEVER Last administered on 12/11/16 20:29; Admin Dose 650 MG; Start 12/10/16 at 11:00 Docusate Sodium (Colace) 100 mg Q12H PRN PO CONSTIPATION; Start 12/10/16 at 11: 00 Magnesium Hydroxide (Milk Of Mag) 30 ml DAILY PRN PO CONSTIPATION; Start at 11:00 Levofloxacin (Levaquin) 500 mg DAILY@06 PO Last administered on 12/13/16 06:24 ; Admin Dose 500 MG; Start 12/11/16 at 06:00 Lisinopril (Zestril) 20 mg BID PO Last administered on 12/13/16 08:10; Admin Dose 20 MG; Start 12/11/16 at 21:00 Amlodipine Besylate (Norvasc) 5 mg DAILY PO Last administered on 12/13/16 08: 08; Admin Dose 5 MG; Start 12/13/16 at 09:00 Hydralazine HCl (Apresoline) 25 mg TID PO Last administered on 12/13/16 12:28 ; Admin Dose 25 MG; Start 12/13/16 at 09:00 Losartan Potassium (Cozaar) 25 mg DAILY PO Last administered on 12/13/16 08:11 ; Admin Dose 25 MG; Start 12/13/16 at 09:00 Hydralazine HCl (Apresoline) 20 mg Q6H PRN IV SBP>170 Last administered on 12/12 21:43; Admin Dose 20 MG; Start 12/12/16 at 21:30 Barron Hilliard DO Dec 13, 2016 14:52
[2016-12-13] MEDS: MECLIZINE 25 MG TAB PO PRN (15:42)
[2016-12-13] MEDS: SOD CHLORIDE 0.9% 1,000 ML IV SCH (17:49)
[2016-12-13] MEDS: hydrALAzine 20 MG INJ IV PRN (19:39)
--- NOTE | 2016-12-13 21:16 | PN ---
Date/Time of Note Date/Time of Note DATE: 12/13/16 TIME: 21:15 Assessment/Plan VTE Prophylaxis VTE Prophylaxis Intervention: other Lines/Catheters [facility] Peripheral IV Urinary Cath still in place: No Assessment/Plan Chief Complaint/Hosp Course IMPRESSION: The patient has: 1. Hyperkalemia.better 2. Urinary tract infection. 3. Dehydration. 4. Acute kidney injury. 5. Anemia. 6. History of Schatzki ring. 7 htn PLAN CK BMP BP MEDS Problems: Subjective 24 Hr Interval Summary Cardiovascular: no complaints Gastrointestinal: no complaints Genitourinary: no complaints Musculoskeletal: no complaints Exam/Review of Systems Vital Signs Vitals Vital Signs Date Time Temp Pulse Resp B/P Pulse Ox O2 Delivery O2 Flow Rate FiO2 12/13/16 20:15 97.7 76 22 161/78 96 12/12/16 05:00 Room Air 12/11/16 20:00 2.0 Intake and Output 12/12/16 12/12/16 12/13/16 15:00 23:00 07:00 Intake Total 1220 ml 925 ml Output Total 1650 ml 625 ml Balance -430 ml 300 ml Exam Neck: supple Respiratory: clear to auscultation Cardiovascular: regular rate and rhythm Gastrointestinal: soft Musculoskeletal: nl extremities to inspection Results Result Diagram: 12/11/16 0710 12/12/16 0803 Medications Medications Current Medications Aspirin (Aspirin) 81 mg DAILY PO Last administered on 12/13/16 08:11; Admin Dose 81 MG; Start 12/11/16 at 09:00 Finasteride (Proscar) 5 mg DAILY PO Last administered on 12/13/16 08:11; Admin Dose 5 MG; Start 12/11/16 at 09:00 Meclizine HCl 25 mg 25 mg TID PRN PO veritigo Last administered on 12/13/16 15 :42; Admin Dose 25 MG; Start 12/10/16 at 11:00 Sodium Chloride (NS) 1,000 ml @ 50 mls/hr Q20H IV Last administered on 17:49; Admin Dose 50 MLS/HR; Start 12/10/16 at 11:00 Ondansetron HCl (Zofran Inj) 4 mg Q6H PRN IV NAUSEA AND/OR VOMITING; Start at 11:00 Acetaminophen (Tylenol Tab) 650 mg Q6H PRN PO PAIN LEVEL 1-3 OR FEVER Last administered on 12/11/16 20:29; Admin Dose 650 MG; Start 12/10/16 at 11:00 Docusate Sodium (Colace) 100 mg Q12H PRN PO CONSTIPATION; Start 12/10/16 at 11: 00 Magnesium Hydroxide (Milk Of Mag) 30 ml DAILY PRN PO CONSTIPATION; Start at 11:00 Levofloxacin (Levaquin) 500 mg DAILY@06 PO Last administered on 12/13/16 06:24 ; Admin Dose 500 MG; Start 12/11/16 at 06:00 Lisinopril (Zestril) 20 mg BID PO Last administered on 12/13/16 08:10; Admin Dose 20 MG; Start 12/11/16 at 21:00 Amlodipine Besylate (Norvasc) 5 mg DAILY PO Last administered on 12/13/16 08: 08; Admin Dose 5 MG; Start 12/13/16 at 09:00 Hydralazine HCl (Apresoline) 20 mg Q6H PRN IV SBP>170 Last administered on 12/13 19:39; Admin Dose 20 MG; Start 12/12/16 at 21:30 Hydralazine HCl (Apresoline) 10 mg Q8H PRN PO sbp>160; Start 12/13/16 at 15:00 DAVIS KIRBY MD Dec 13, 2016 21:16
[2016-12-14] VITALS (14 sets, daily range): BP systolic 131–180; BP diastolic 58–86; PULSE 56–82; RESP 16–22
[2016-12-14] MEDS: LEVOFLOXACIN 500 MG TAB PO SCH (06:29)
[2016-12-14 08:07] LABS: BASOPHILS % 0.3 % (0.0-2.0); EOSINOPHILS # 0.2 10^3/ul (0.0-0.5); EOSINOPHILS % 2.1 % (0.0-7.0); HEMATOCRIT 35.9 % (42.0-52.0); HEMOGLOBIN 11.3 g/dl (14.0-18.0); LYMPHOCYTES # 2.5 10^3/ul (0.8-2.9); LYMPHOCYTES % 25.5 % (15.0-51.0); MEAN CORPUSCULAR HGB CONC 31.5 g/dl (32.0-37.0); MEAN CORPUSCULAR VOLUME 95.2 fl (82.0-101.0); MEAN PLATELET VOLUME 10.6 fl (7.4-10.4); MONOCYTES % 9.8 % (0.0-11.0); NEUTROPHIL # 6.2 10^3/ul (1.6-7.5); PLATELET COUNT 252 10^3/UL (140-415); RED BLOOD COUNT 3.77 10^6/ul (4.70-6.10); RED CELL DISTRIBUTION WIDTH 13.5 % (11.5-14.5); WHITE BLOOD COUNT 9.9 10^3/ul (4.8-10.8)
[2016-12-14 08:12] LABS: ADD SCAN DIFF NO
[2016-12-14 08:38] LABS: CALCIUM 9.2 mg/dl (8.4-10.2); CREATININE 1.46 mg/dl (0.61-1.24); POTASSIUM 4.5 mmol/L (3.5-5.1)
--- NOTE | 2016-12-14 09:02 | RADRPT ---
PROCEDURE: XR Chest 1 view. CLINICAL INDICATION: Shortness of breath. TECHNIQUE: AP views of the chest were obtained. COMPARISON: December 09, 2016 FINDINGS: The heart is large. Calcified atherosclerosis is noted in the aorta. The left lung base is obscured by overlying wires. The lungs are hypoinflated. Atelectasis is noted in the bilateral lower lobes . No consolidations are identified. No pneumothorax is seen. The osseous structures are osteopeni c, but appear grossly intact. Left shoulder replacement is seen. IMPRESSION: Cardiomegaly with calcified atherosclerosis in the aorta. Limited exam with the left lung base obscured by overlying wires. Repeat exam with the wires moved should be considered. Hypoinflated lungs. Atelectasis in the bilateral lower lobes. RPTAT: AA .Kiet Mae MD, Date Time Electronically viewed and signed by .Kiet Mae MD, MD on 12/14/2016 09:02 .P/
[2016-12-14] MEDS: LISINOPRIL 20 MG TAB PO SCH ×2 (09:04→21:06)
[2016-12-14] MEDS: ASPIRIN 81 MG TAB PO SCH (09:04)
[2016-12-14] MEDS: AMLODIPINE 5 MG TAB PO SCH ×2 (09:04→21:07)
[2016-12-14] MEDS: hydrALAzine 20 MG INJ IV PRN (09:05)
[2016-12-14] MEDS: FINASTERIDE 5 MG TAB PO SCH (09:11)
[2016-12-14] MEDS: MECLIZINE 25 MG TAB PO PRN ×2 (10:39→21:06)
--- NOTE | 2016-12-14 11:01 | RADRPT ---
Echocardiogram Report Patient Name: CELE ROWE Gender: Male Date: 1930 Study Date: 14-Dec-2016 Budget Report Clerk: Katina Garrison [facility] Location: 5547 Ref. Physician: BARRON HILLIARD Quality: Technically Difficult Study Procedures: Transthoracic echocardiogram examination. Indications: Aortic Valve Disease. 2D/M Mode Doppler Measurement Value Normal Range Measurement Value Normal Range LVOT Diam 2.0 cm MARLON Vmax 1.3 cm2 LVOT Area 3.1 cm2 MARLON VTI 1.4 cm2 AV Mean Fernando 2.2 m/sec AV Mean PG 23.0 mmHg AV Peak Fernando 3.2 m/sec AV Peak PG 42.0 mmHg AV VTI 75.3 cm AI Peak PG 28.0 mmHg AI Peak Fernando 2.6 m/sec LVOT Mean Fernando 1.0 m/sec LVOT Mean PG 4.0 mmHg LVOT Peak Fernando 1.3 m/sec LVOT Peak PG 7.0 mmHg LVOT VTI 32.6 cm Findings Left Ventricle: Normal left ventricular systolic function. The left ventricular ejection fraction is visually estimated at 60 %. Aortic Valve: Moderate aortic stenosis. Aortic valve Max velocity 3.23 m/sec. Max PG 42 mmHg. Mean PG 25mmHg. Aortic valve area 1.30 cm2. Aortic cusps appear moderately calcified. Mild aortic regurgitation. Pericardium: Trivial effusion. Conclusions Normal left ventricular systolic function. The left ventricular ejection fraction is visually estimated at 60 %. Moderate aortic stenosis. Aortic cusps appear moderately calcified. Mild aortic regurgitation. Electronically Signed By: Barron Hilliard 14-Dec-2016 11:00:56 -9121 Patient Name: CELE ROWE Study Date: 14-Dec-2016 [id number]
--- NOTE | 2016-12-14 11:24 | CONS ---
Date/Time of Note Date/Time of Note DATE: 12/14/16 TIME: 11:20 Assessment/Plan Assessment/Plan Additional Assessment/Plan Dizziness and lightheadedness Hypertension Preserved ejection fraction Moderate aortic stenosis Bradycardia-resolved Acute kidney injury, improving -Initial echocardiogram reviewed with suboptimal imaging of aortic valve. Repeat echocardiogram performed demonstrates aortic valve does open. Aortic valve stenosis likely mild to moderate. There is normal left ventricular systolic function. I am concerned his dizziness is not fully related to his blood pressure or cardiac issues and possibly secondary to his vertigo. Blood pressure trend has improved but still remains elevated, would increase Norvasc to twice daily dosing. Continue physical therapy. Chest x-ray with no evidence of significant volume overload. Heart rate trend improved on telemetry , no AV livia blocking agents at the current time. Diuretics have been stopped. Consultation Date/Type/Reason Admit Date/Time Dec 11, 2016 at 11:17 Initial Consult Date 12/11/16 Type of Consultation: cardiology Referring Provider: DAVIS KIRBY MD 24 HR Interval Summary Free Text/Dictation Patient complaining of mild dizziness today and appears positional with head movements. Improved after meclizine. Denies current shortness of breath or chest pain. Overall feeling better compared to yesterday Exam/Review of Systems Vital Signs Vitals Vital Signs Date Time Temp Pulse Resp B/P Pulse Ox O2 Delivery O2 Flow Rate FiO2 12/14/16 10:00 82 155/69 12/14/16 08:43 98.0 18 98 12/13/16 23:45 Room Air 12/11/16 20:00 2.0 Intake and Output 12/13/16 12/13/16 12/14/16 15:00 23:00 07:00 Intake Total 1000 ml Output Total 200 ml Balance 1000 ml -200 ml Exam No apparent distress Constitutional: alert, oriented Head: normocephalic Neck: supple Respiratory: clear to auscultation, normal air movement Cardiovascular: other, regular rate and rhythm, systolic murmur Gastrointestinal: bowel sounds, non-tender, soft Extremities: other (No edema) Results Result Diagram: 12/14/16 0650 12/14/16 0650 Results 24 hrs Laboratory Tests Test 12/14/16 06:50 White Blood Count 9.9 Red Blood Count 3.77 L Hemoglobin 11.3 L Hematocrit 35.9 L Mean Corpuscular Volume 95.2 Mean Corpuscular Hemoglobin 30.0 Mean Corpuscular Hemoglobin Concent 31.5 L Red Cell Distribution Width 13.5 Platelet Count 252 Mean Platelet Volume 10.6 H Neutrophils % 62.0 Lymphocytes % 25.5 Monocytes % 9.8 Eosinophils % 2.1 Basophils % 0.3 Nucleated Red Blood Cells % 0.0 Neutrophils # 6.2 Lymphocytes # 2.5 Monocytes # 1.0 H Eosinophils # 0.2 Basophils # 0.0 Nucleated Red Blood Cells # 0.0 Sodium Level 139 Potassium Level 4.5 Chloride Level 107 Carbon Dioxide Level 25 Anion Gap 12 Blood Urea Nitrogen 21 H Creatinine 1.46 H Glucose Level 94 Calcium Level 9.2 Magnesium Level 1.7 Medications Medications Current Medications Aspirin (Aspirin) 81 mg DAILY PO Last administered on 12/14/16 09:04; Admin Dose 81 MG; Start 12/11/16 at 09:00 Finasteride (Proscar) 5 mg DAILY PO Last administered on 12/14/16 09:11; Admin Dose 5 MG; Start 12/11/16 at 09:00 Meclizine HCl 25 mg 25 mg TID PRN PO veritigo Last administered on 12/14/16 10 :39; Admin Dose 25 MG; Start 12/10/16 at 11:00 Sodium Chloride (NS) 1,000 ml @ 50 mls/hr Q20H IV Last administered on 17:49; Admin Dose 50 MLS/HR; Start 12/10/16 at 11:00 Ondansetron HCl (Zofran Inj) 4 mg Q6H PRN IV NAUSEA AND/OR VOMITING; Start at 11:00 Acetaminophen (Tylenol Tab) 650 mg Q6H PRN PO PAIN LEVEL 1-3 OR FEVER Last administered on 12/11/16 20:29; Admin Dose 650 MG; Start 12/10/16 at 11:00 Docusate Sodium (Colace) 100 mg Q12H PRN PO CONSTIPATION; Start 12/10/16 at 11: 00 Magnesium Hydroxide (Milk Of Mag) 30 ml DAILY PRN PO CONSTIPATION; Start at 11:00 Levofloxacin (Levaquin) 500 mg DAILY@06 PO Last administered on 12/14/16 06:29 ; Admin Dose 500 MG; Start 12/11/16 at 06:00 Lisinopril (Zestril) 20 mg BID PO Last administered on 12/14/16 09:04; Admin Dose 20 MG; Start 12/11/16 at 21:00 Amlodipine Besylate (Norvasc) 5 mg DAILY PO Last administered on 12/14/16 09: 04; Admin Dose 5 MG; Start 12/13/16 at 09:00 Hydralazine HCl (Apresoline) 20 mg Q6H PRN IV SBP>170 Last administered on 12/14 09:05; Admin Dose 20 MG; Start 12/12/16 at 21:30 Hydralazine HCl (Apresoline) 10 mg Q8H PRN PO sbp>160 Last administered on 12/13 23:45; Admin Dose 10 MG; Start 12/13/16 at 15:00 Barron Hilliard DO Dec 14, 2016 11:24
[2016-12-14] MEDS ORDERED: MAGNESIUM SULFATE 2 GM/50 ML 50 ML IVPB ONE (11:30)
--- NOTE | 2016-12-14 13:24 | PN ---
Date/Time of Note Date/Time of Note DATE: 12/14/16 TIME: 13:22 Assessment/Plan VTE Prophylaxis VTE Prophylaxis Intervention: ambulation, SCD's Lines/Catheters IV Catheter Type (from Nrs): Peripheral IV Urinary Cath still in place: No Assessment/Plan Chief Complaint/Hosp Course 1. Hyperkalemia.better 2. Urinary tract infection. 3. Dehydration. 4. Acute kidney injury. 5. Anemia. 6. History of Schatzki ring. 7. Hypertension, controlled Problems: Assessment/Plan 1,. continue current regime Subjective 24 Hr Interval Summary Constitutional: improved, no complaints Genitourinary: no complaints Exam/Review of Systems Vital Signs Vitals Vital Signs Date Time Temp Pulse Resp B/P Pulse Ox O2 Delivery O2 Flow Rate FiO2 12/14/16 12:27 78 12/14/16 11:46 98.1 19 131/58 94 12/13/16 23:45 Room Air 12/11/16 20:00 2.0 Intake and Output 12/13/16 12/13/16 12/14/16 15:00 23:00 07:00 Intake Total 1000 ml Output Total 200 ml Balance 1000 ml -200 ml Exam Constitutional: alert, oriented Respiratory: clear to auscultation Cardiovascular: regular rate and rhythm Neurological: other Skin: ecchymosis, other Results Result Diagram: 12/14/16 0650 12/14/16 0650 Results 24 hrs Laboratory Tests Test 12/14/16 06:50 White Blood Count 9.9 Red Blood Count 3.77 L Hemoglobin 11.3 L Hematocrit 35.9 L Mean Corpuscular Volume 95.2 Mean Corpuscular Hemoglobin 30.0 Mean Corpuscular Hemoglobin Concent 31.5 L Red Cell Distribution Width 13.5 Platelet Count 252 Mean Platelet Volume 10.6 H Neutrophils % 62.0 Lymphocytes % 25.5 Monocytes % 9.8 Eosinophils % 2.1 Basophils % 0.3 Nucleated Red Blood Cells % 0.0 Neutrophils # 6.2 Lymphocytes # 2.5 Monocytes # 1.0 H Eosinophils # 0.2 Basophils # 0.0 Nucleated Red Blood Cells # 0.0 Sodium Level 139 Potassium Level 4.5 Chloride Level 107 Carbon Dioxide Level 25 Anion Gap 12 Blood Urea Nitrogen 21 H Creatinine 1.46 H Glucose Level 94 Calcium Level 9.2 Magnesium Level 1.7 Medications Medications Current Medications Aspirin (Aspirin) 81 mg DAILY PO Last administered on 12/14/16 09:04; Admin Dose 81 MG; Start 12/11/16 at 09:00 Finasteride (Proscar) 5 mg DAILY PO Last administered on 12/14/16 09:11; Admin Dose 5 MG; Start 12/11/16 at 09:00 Meclizine HCl 25 mg 25 mg TID PRN PO veritigo Last administered on 12/14/16 10 :39; Admin Dose 25 MG; Start 12/10/16 at 11:00 Sodium Chloride (NS) 1,000 ml @ 50 mls/hr Q20H IV Last administered on 17:49; Admin Dose 50 MLS/HR; Start 12/10/16 at 11:00 Ondansetron HCl (Zofran Inj) 4 mg Q6H PRN IV NAUSEA AND/OR VOMITING; Start at 11:00 Acetaminophen (Tylenol Tab) 650 mg Q6H PRN PO PAIN LEVEL 1-3 OR FEVER Last administered on 12/11/16 20:29; Admin Dose 650 MG; Start 12/10/16 at 11:00 Docusate Sodium (Colace) 100 mg Q12H PRN PO CONSTIPATION; Start 12/10/16 at 11: 00 Magnesium Hydroxide (Milk Of Mag) 30 ml DAILY PRN PO CONSTIPATION; Start at 11:00 Levofloxacin (Levaquin) 500 mg DAILY@06 PO Last administered on 12/14/16 06:29 ; Admin Dose 500 MG; Start 12/11/16 at 06:00 Lisinopril (Zestril) 20 mg BID PO Last administered on 12/14/16 09:04; Admin Dose 20 MG; Start 12/11/16 at 21:00 Hydralazine HCl (Apresoline) 20 mg Q6H PRN IV SBP>170 Last administered on 12/14 09:05; Admin Dose 20 MG; Start 12/12/16 at 21:30 Hydralazine HCl (Apresoline) 10 mg Q8H PRN PO sbp>160 Last administered on 12/13 23:45; Admin Dose 10 MG; Start 12/13/16 at 15:00 Amlodipine Besylate 5 mg 5 mg BID PO ; Start 12/14/16 at 21:00 Magnesium Sulfate (Magnesium Sulfate 2 Gm/50 ml) 50 ml @ 25 mls/hr ONCE ONCE IVPB Last administered on 12/14/16t 12:03; Admin Dose 25 MLS/HR; Start at 11:30; Stop 12/14/16 at 13:29 ALEKSANDR NOE Dec 14, 2016 13:24
[2016-12-14] MEDS: SOD CHLORIDE 0.9% 1,000 ML IV SCH (15:00)
[2016-12-15] VITALS (13 sets, daily range): BP systolic 118–160; BP diastolic 58–71; PULSE 57–82; RESP 15–20
[2016-12-15] MEDS: LEVOFLOXACIN 500 MG TAB PO SCH (05:40)
[2016-12-15 08:39] LABS: BASOPHILS % 0.4 % (0.0-2.0); EOSINOPHILS # 0.2 10^3/ul (0.0-0.5); EOSINOPHILS % 2.5 % (0.0-7.0); HEMATOCRIT 34.1 % (42.0-52.0); HEMOGLOBIN 10.8 g/dl (14.0-18.0); LYMPHOCYTES # 2.4 10^3/ul (0.8-2.9); LYMPHOCYTES % 25.1 % (15.0-51.0); MEAN CORPUSCULAR HEMOGLOBIN 30.3 pg (29.0-33.0); MEAN CORPUSCULAR HGB CONC 31.7 g/dl (32.0-37.0); MEAN CORPUSCULAR VOLUME 95.8 fl (82.0-101.0); MEAN PLATELET VOLUME 10.4 fl (7.4-10.4); MONOCYTE # 0.9 10^3/ul (0.3-0.9); MONOCYTES % 9.3 % (0.0-11.0); NEUTROPHILS % 62.3 % (39.0-77.0); PLATELET COUNT 258 10^3/UL (140-415); RED BLOOD COUNT 3.56 10^6/ul (4.70-6.10); RED CELL DISTRIBUTION WIDTH 13.4 % (11.5-14.5); WHITE BLOOD COUNT 9.7 10^3/ul (4.8-10.8)
[2016-12-15] MEDS: ASPIRIN 81 MG TAB PO SCH (09:03)
[2016-12-15] MEDS: FINASTERIDE 5 MG TAB PO SCH (09:03)
[2016-12-15] MEDS: LISINOPRIL 20 MG TAB PO SCH ×2 (09:03→21:37)
[2016-12-15] MEDS: AMLODIPINE 5 MG TAB PO SCH ×2 (09:03→21:36)
[2016-12-15] MEDS: MECLIZINE 25 MG TAB PO PRN ×2 (09:06→21:42)
[2016-12-15 09:10] LABS: CALCIUM 9.7 mg/dl (8.4-10.2); CREATININE 1.37 mg/dl (0.61-1.24)
[2016-12-15 09:15] LABS: POTASSIUM 5.2 mmol/L (3.5-5.1)
[2016-12-15] MEDS: SOD CHLORIDE 0.9% 1,000 ML IV SCH ×2 (11:00→22:34)
--- NOTE | 2016-12-15 12:46 | PN ---
Date/Time of Note Date/Time of Note DATE: 12/15/16 TIME: 12:45 Assessment/Plan VTE Prophylaxis VTE Prophylaxis Intervention: ambulation Lines/Catheters IV C[facility] Type (from [facility]): Peripheral IV Urinary Cath still in place: No Assessment/Plan Chief Complaint/Hosp Course 1. Hyperkalemia. 2. Urinary tract infection. 3. Dehydration. 4. Acute kidney injury. 5. Anemia. 6. History of Schatzki ring. 7. Hypertension, controlled Problems: Assessment/Plan 1. Kayaxalate once Subjective 24 Hr Interval Summary Constitutional: no complaints Cardiovascular: lightheadedness, other (high blood pressure) Exam/Review of Systems Vital Signs Vitals Vital Signs Date Time Temp Pulse Resp B/P Pulse Ox O2 Delivery O2 Flow Rate FiO2 12/15/16 12:08 82 12/15/16 11:57 98.0 18 131/60 98 12/13/16 23:45 Room Air 12/11/16 20:00 2.0 Intake and Output 12/14/16 12/14/16 12/15/16 15:00 23:00 07:00 Intake Total 1000 ml Output Total 200 ml 150 ml Balance 800 ml -150 ml Exam Constitutional: alert, oriented Respiratory: clear to auscultation Cardiovascular: regular rate and rhythm Results Result Diagram: 12/15/16 0740 12/15/16 0740 Results 24 hrs Laboratory Tests Test 12/15/16 07:40 White Blood Count 9.7 Red Blood Count 3.56 L Hemoglobin 10.8 L Hematocrit 34.1 L Mean Corpuscular Volume 95.8 Mean Corpuscular Hemoglobin 30.3 Mean Corpuscular Hemoglobin Concent 31.7 L Red Cell Distribution Width 13.4 Platelet Count 258 Mean Platelet Volume 10.4 Neutrophils % 62.3 Lymphocytes % 25.1 Monocytes % 9.3 Eosinophils % 2.5 Basophils % 0.4 Nucleated Red Blood Cells % 0.0 Neutrophils # 6.0 Lymphocytes # 2.4 Monocytes # 0.9 Eosinophils # 0.2 Basophils # 0.0 Nucleated Red Blood Cells # 0.0 Sodium Level 140 Potassium Level 5.2 H Chloride Level 104 Carbon Dioxide Level 24 Anion Gap 17 H Blood Urea Nitrogen 23 H Creatinine 1.37 H Glucose Level 85 Calcium Level 9.7 Magnesium Level 2.2 Medications Medications Current Medications Aspirin (Aspirin) 81 mg DAILY PO Last administered on 12/15/16 09:03; Admin Dose 81 MG; Start 12/11/16 at 09:00 Finasteride (Proscar) 5 mg DAILY PO Last administered on 12/15/16 09:03; Admin Dose 5 MG; Start 12/11/16 at 09:00 Meclizine HCl 25 mg 25 mg TID PRN PO veritigo Last administered on 12/15/16 09: 06; Admin Dose 25 MG; Start 12/10/16 at 11:00 Sodium Chloride (NS) 1,000 ml @ 50 mls/hr Q20H IV Last administered on 17:49; Admin Dose 50 MLS/HR; Start 12/10/16 at 11:00 Ondansetron HCl (Zofran Inj) 4 mg Q6H PRN IV NAUSEA AND/OR VOMITING; Start at 11:00 Acetaminophen (Tylenol Tab) 650 mg Q6H PRN PO PAIN LEVEL 1-3 OR FEVER Last administered on 12/11/16 20:29; Admin Dose 650 MG; Start 12/10/16 at 11:00 Docusate Sodium (Colace) 100 mg Q12H PRN PO CONSTIPATION; Start 12/10/16 at 11: 00 Magnesium Hydroxide (Milk Of Mag) 30 ml DAILY PRN PO CONSTIPATION; Start at 11:00 Levofloxacin (Levaquin) 500 mg DAILY@06 PO Last administered on 12/15/16 05:40 ; Admin Dose 500 MG; Start 12/11/16 at 06:00 Lisinopril (Zestril) 20 mg BID PO Last administered on 12/15/16 09:03; Admin Dose 20 MG; Start 12/11/16 at 21:00 Hydralazine HCl (Apresoline) 20 mg Q6H PRN IV SBP>170 Last administered on 12/14 09:05; Admin Dose 20 MG; Start 12/12/16 at 21:30 Hydralazine HCl (Apresoline) 10 mg Q8H PRN PO sbp>160 Last administered on 12/13 23:45; Admin Dose 10 MG; Start 12/13/16 at 15:00 Amlodipine Besylate (Norvasc) 5 mg BID PO Last administered on 7/1/17at 09:03; Admin Dose 5 MG; Start 12/14/16 at 21:00 ALEKSANDR NOE Dec 15, 2016 12:46
[2016-12-15] MEDS ORDERED: NA POLYST SULFON 15 GM/60 ML BTL PO ONE (13:00)
--- NOTE | 2016-12-15 18:23 | PN ---
Date/Time of Note Date/Time of Note DATE: 12/15/16 TIME: 18:16 Assessment/Plan VTE Prophylaxis VTE Prophylaxis Intervention: other Lines/Catheters IV [facility] Type (from [facility]): Peripheral IV Urinary Cath still in place: No Assessment/Plan Chief Complaint/Hosp Course Dizziness and lightheadedness Hypertension: under good control now. Moderate aortic stenosis: with Preserved ejection fraction Bradycardia-resolved now Acute kidney injury, improving cont current cardiac care. BP has remained controlled with coreg, lisinopril and norvasc Problems: Subjective 24 Hr Interval Summary Free Text/Dictation d.w staff and rhythm was reviewed. pt remains in NSR and HR has been stable. no chest pain or pressure. he still c/o dizziness though Exam/Review of Systems Vital Signs Vitals Vital Signs Date Time Temp Pulse Resp B/P Pulse Ox O2 Delivery O2 Flow Rate FiO2 12/15/16 17:51 98.0 74 18 118/59 98 12/13/16 23:45 Room Air 12/11/16 20:00 2.0 Intake and Output 12/14/16 12/14/16 12/15/16 15:00 23:00 07:00 Intake Total 1000 ml Output Total 200 ml 150 ml Balance 800 ml -150 ml Exam GEN: no acute distress HEENT; NCAT. pupils are equal Neck no JVD No stridor CV: RRR GRACIA. pulm mild rhonchi. no wheezing. GI soft NT ND breast: + gynecomastia ext trace LE edema neuro awake and alert. psych calm now Results Result Diagram: 12/15/16 0740 12/15/16 0740 Results 24 hrs Laboratory Tests Test 12/15/16 07:40 White Blood Count 9.7 Red Blood Count 3.56 L Hemoglobin 10.8 L Hematocrit 34.1 L Mean Corpuscular Volume 95.8 Mean Corpuscular Hemoglobin 30.3 Mean Corpuscular Hemoglobin Concent 31.7 L Red Cell Distribution Width 13.4 Platelet Count 258 Mean Platelet Volume 10.4 Neutrophils % 62.3 Lymphocytes % 25.1 Monocytes % 9.3 Eosinophils % 2.5 Basophils % 0.4 Nucleated Red Blood Cells % 0.0 Neutrophils # 6.0 Lymphocytes # 2.4 Monocytes # 0.9 Eosinophils # 0.2 Basophils # 0.0 Nucleated Red Blood Cells # 0.0 Sodium Level 140 Potassium Level 5.2 H Chloride Level 104 Carbon Dioxide Level 24 Anion Gap 17 H Blood Urea Nitrogen 23 H Creatinine 1.37 H Glucose Level 85 Calcium Level 9.7 Magnesium Level 2.2 Medications Medications Current Medications Aspirin (Aspirin) 81 mg DAILY PO Last administered on 12/15/16 09:03; Admin Dose 81 MG; Start 12/11/16 at 09:00 Finasteride (Proscar) 5 mg DAILY PO Last administered on 12/15/16 09:03; Admin Dose 5 MG; Start 12/11/16 at 09:00 Meclizine HCl 25 mg 25 mg TID PRN PO veritigo Last administered on 12/15/16 09: 06; Admin Dose 25 MG; Start 12/10/16 at 11:00 Sodium Chloride (NS) 1,000 ml @ 50 mls/hr Q20H IV Last administered on 17:49; Admin Dose 50 MLS/HR; Start 12/10/16 at 11:00 Ondansetron HCl (Zofran Inj) 4 mg Q6H PRN IV NAUSEA AND/OR VOMITING; Start at 11:00 Acetaminophen (Tylenol Tab) 650 mg Q6H PRN PO PAIN LEVEL 1-3 OR FEVER Last administered on 12/11/16 20:29; Admin Dose 650 MG; Start 12/10/16 at 11:00 Docusate Sodium (Colace) 100 mg Q12H PRN PO CONSTIPATION; Start 12/10/16 at 11: 00 Magnesium Hydroxide (Milk Of Mag) 30 ml DAILY PRN PO CONSTIPATION; Start at 11:00 Levofloxacin (Levaquin) 500 mg DAILY@06 PO Last administered on 12/15/16 05:40 ; Admin Dose 500 MG; Start 12/11/16 at 06:00 Lisinopril (Zestril) 20 mg BID PO Last administered on 12/15/16 09:03; Admin Dose 20 MG; Start 12/11/16 at 21:00 Hydralazine HCl (Apresoline) 20 mg Q6H PRN IV SBP>170 Last administered on 12/14 09:05; Admin Dose 20 MG; Start 12/12/16 at 21:30 Hydralazine HCl (Apresoline) 10 mg Q8H PRN PO sbp>160 Last administered on 12/13 23:45; Admin Dose 10 MG; Start 12/13/16 at 15:00 Amlodipine Besylate (Norvasc) 5 mg BID PO Last administered on 12/15/16 09:03; Admin Dose 5 MG; Start 12/14/16 at 21:00 Carvedilol (Coreg) 6.25 mg BID PO Last administered on 12/15/16 13:12; Admin Dose 6.25 MG; Start 12/15/16 at 13:00 ANTOINETTE KAUFMAN MD Dec 15, 2016 18:22
[2016-12-16] VITALS (8 sets, daily range): BP systolic 105–133; BP diastolic 53–64; PULSE 53–64; RESP 18–20
[2016-12-16] MEDS: LEVOFLOXACIN 500 MG TAB PO SCH (05:53)
[2016-12-16] MEDS: SOD CHLORIDE 0.9% 1,000 ML IV SCH (05:53)
[2016-12-16 07:32] LABS: BASOPHILS % 0.4 % (0.0-2.0); EOSINOPHILS # 0.3 10^3/ul (0.0-0.5); EOSINOPHILS % 2.7 % (0.0-7.0); HEMATOCRIT 32.8 % (42.0-52.0); HEMOGLOBIN 10.2 g/dl (14.0-18.0); LYMPHOCYTES # 2.3 10^3/ul (0.8-2.9); LYMPHOCYTES % 22.1 % (15.0-51.0); MEAN CORPUSCULAR HEMOGLOBIN 30.2 pg (29.0-33.0); MEAN CORPUSCULAR HGB CONC 31.1 g/dl (32.0-37.0); MEAN PLATELET VOLUME 9.9 fl (7.4-10.4); MONOCYTE # 0.9 10^3/ul (0.3-0.9); MONOCYTES % 8.9 % (0.0-11.0); NEUTROPHIL # 6.8 10^3/ul (1.6-7.5); NEUTROPHILS % 65.4 % (39.0-77.0); PLATELET COUNT 233 10^3/UL (140-415); RED BLOOD COUNT 3.38 10^6/ul (4.70-6.10); RED CELL DISTRIBUTION WIDTH 13.5 % (11.5-14.5); WHITE BLOOD COUNT 10.4 10^3/ul (4.8-10.8)
[2016-12-16 07:39] LABS: ADD SCAN DIFF NO
[2016-12-16 07:51] LABS: CALCIUM 9.3 mg/dl (8.4-10.2); CREATININE 1.46 mg/dl (0.61-1.24); POTASSIUM 4.7 mmol/L (3.5-5.1)
[2016-12-16] MEDS: FINASTERIDE 5 MG TAB PO SCH (08:50)
[2016-12-16] MEDS: ASPIRIN 81 MG TAB PO SCH (08:50)
[2016-12-16] MEDS: MECLIZINE 25 MG TAB PO PRN (08:50)
[2016-12-16] MEDS: AMLODIPINE 5 MG TAB PO SCH (08:51)
[2016-12-16] MEDS: LISINOPRIL 20 MG TAB PO SCH (08:51)
--- NOTE | 2016-12-16 14:41 | PDOCDIS ---
Discharge Instructions CONDITION Patient Condition: Good HOME CARE INSTRUCTIONS: Special Diet: Low Fat Low Chol ACTIVITY: Activity Restrictions: Slowly Increase Activity FOLLOW UP/APPOINTMENTS Follow-up Plan see dr carlos kirby 2 wks [phone] alvarado 2 wks DAVIS KIRBY MD Dec 16, 2016 14:41
[2016-12-16] MEDS ORDERED: CARV6.2579 PO (14:43)
[2016-12-16] MEDS ORDERED: MECL-77 PO (14:43)
[2016-12-16] MEDS ORDERED: LEVO500T72 PO (14:43)
[2016-12-16] MEDS ORDERED: DOCU-216 PO (14:43)
[2016-12-16] MEDS ORDERED: AMLO-145 PO (14:43)
--- NOTE | 2016-12-16 15:11 | PN ---
Date/Time of Note Date/Time of Note DATE: 12/16/16 TIME: 15:10 Assessment/Plan VTE Prophylaxis VTE Prophylaxis Intervention: ambulation Lines/Catheters IV Catheter Type (from [facility]): Peripheral IV Urinary Cath still in place: No Assessment/Plan Chief Complaint/Hosp Course Dizziness and lightheadedness Hypertension: under good control now. Moderate aortic stenosis: with Preserved ejection fraction Bradycardia-resolved now Acute kidney injury, improving cont current cardiac care. BP has remained controlled with coreg, lisinopril and norvasc DC PLANNING is in process Problems: Subjective 24 Hr Interval Summary Free Text/Dictation D/W STAFF and rhythm was reviewed. pt with no more dizziness today and wants to go home no cp or pressure or palpitations he remains in NSR Exam/Review of Systems Vital Signs Vitals Vital Signs Date Time Temp Pulse Resp B/P Pulse Ox O2 Delivery O2 Flow Rate FiO2 12/16/16 12:43 98.0 65 18 105/53 98 12/13/16 23:45 Room Air Intake and Output 12/15/16 12/15/16 12/16/16 15:00 23:00 07:00 Intake Total 1870 ml 426 ml Output Total 1300 ml 700 ml Balance 570 ml -274 ml Exam GEN: no acute distress HEENT; NCAT. pupils are equal Neck no JVD No stridor CV: RRR GRACIA. pulm mild rhonchi. no wheezing. GI soft NT ND breast: + gynecomastia ext trace LE edema neuro awake and alert. psych calm now Results Result Diagram: 12/16/16 0654 12/16/16 0654 Results 24 hrs Laboratory Tests Test 12/16/16 06:54 White Blood Count 10.4 Red Blood Count 3.38 L Hemoglobin 10.2 L Hematocrit 32.8 L Mean Corpuscular Volume 97.0 Mean Corpuscular Hemoglobin 30.2 Mean Corpuscular Hemoglobin Concent 31.1 L Red Cell Distribution Width 13.5 Platelet Count 233 Mean Platelet Volume 9.9 Neutrophils % 65.4 Lymphocytes % 22.1 Monocytes % 8.9 Eosinophils % 2.7 Basophils % 0.4 Nucleated Red Blood Cells % 0.0 Neutrophils # 6.8 Lymphocytes # 2.3 Monocytes # 0.9 Eosinophils # 0.3 Basophils # 0.0 Nucleated Red Blood Cells # 0.0 Sodium Level 142 Potassium Level 4.7 Chloride Level 104 Carbon Dioxide Level 22 Anion Gap 21 H Blood Urea Nitrogen 29 H Creatinine 1.46 H Glucose Level 101 Calcium Level 9.3 Medications Medications Current Medications Aspirin (Aspirin) 81 mg DAILY PO Last administered on 12/16/16 08:50; Admin Dose 81 MG; Start 12/11/16 at 09:00 Finasteride (Proscar) 5 mg DAILY PO Last administered on 12/16/16 08:50; Admin Dose 5 MG; Start 12/11/16 at 09:00 Meclizine HCl 25 mg 25 mg TID PRN PO veritigo Last administered on 12/16/16 08: 50; Admin Dose 25 MG; Start 12/10/16 at 11:00 Sodium Chloride (NS) 1,000 ml @ 50 mls/hr Q20H IV Last administered on 22:34; Admin Dose 50 MLS/HR; Start 12/10/16 at 11:00 Ondansetron HCl (Zofran Inj) 4 mg Q6H PRN IV NAUSEA AND/OR VOMITING; Start at 11:00 Acetaminophen (Tylenol Tab) 650 mg Q6H PRN PO PAIN LEVEL 1-3 OR FEVER Last administered on 12/11/16 20:29; Admin Dose 650 MG; Start 12/10/16 at 11:00 Docusate Sodium (Colace) 100 mg Q12H PRN PO CONSTIPATION; Start 12/10/16 at 11: 00 Magnesium Hydroxide (Milk Of Mag) 30 ml DAILY PRN PO CONSTIPATION; Start at 11:00 Levofloxacin (Levaquin) 500 mg DAILY@06 PO Last administered on 12/16/16 05:53 ; Admin Dose 500 MG; Start 12/11/16 at 06:00 Lisinopril (Zestril) 20 mg BID PO Last administered on 12/16/16 08:51; Admin Dose 20 MG; Start 12/11/16 at 21:00 Hydralazine HCl (Apresoline) 20 mg Q6H PRN IV SBP>170 Last administered on 12/14 09:05; Admin Dose 20 MG; Start 12/12/16 at 21:30 Hydralazine HCl (Apresoline) 10 mg Q8H PRN PO sbp>160 Last administered on 12/13 23:45; Admin Dose 10 MG; Start 12/13/16 at 15:00 Amlodipine Besylate (Norvasc) 5 mg BID PO Last administered on 12/16/16 08:51; Admin Dose 5 MG; Start 12/14/16 at 21:00 Carvedilol (Coreg) 6.25 mg BID PO Last administered on 12/16/16 08:51; Admin Dose 6.25 MG; Start 12/15/16 at 13:00 ANTOINETTE KAUFMAN MD Dec 16, 2016 15:11
[2016-12-16] MEDS ORDERED: CARV6.25 PO (15:50)
== END 2016-12-16 16:30 | disposition home or self-care (01) | DRG 683 ==
LOC: E/R 17:46 → MS4 22:59 → UNDOADMOB 22:59 → INTOOBSV 22:59 → MS4 22:59 → E/R 12-10 06:15 → UNDOADMOB 12-10 07:16 → MS4 12-10 07:16 → OBSVTOIN 12-11 11:17 → INTOOBSV 12-11 11:17
PROVIDERS: ADMIT Internal Medicine Nephrology; ATTEND Internal Medicine Nephrology
DX: N17.9 Acute kidney failure, unspecified (principal); N39.0 Urinary tract infection, site not specified; R00.1 Bradycardia, unspecified; E87.5 Hyperkalemia; E86.0 Dehydration; R42 Dizziness and giddiness; N40.0 Benign prostatic hyperplasia without lower urinary tract symptoms; D64.9 Anemia, unspecified; I10 Essential (primary) hypertension; Z91.14 Patient's other noncompliance with medication regimen; I35.0 Nonrheumatic aortic (valve) stenosis
CPT/HCPCS: 36415; 71010; 76775; 80048; 80053; 81001; 82550; 82553; 83690; 83735; 84443; 84484; 85025; 87086; 93005; 93306; 93308; 97162; 99217; G0378; J0360; J3475; J7030; P9612

== ENCOUNTER 2017-04-15 21:06 | Inpatient (IN) | payer MEDICARE, OTHER ==
[~2017-04-15] VITALS: Ht 167.6 cm; Wt 69.2 kg
[~2017-04-15 21:06] MED LIST changes: -AMIO200T2 PO; +AMLO-145 PO; +ASPI81TA3 PO; +BACL10TA PO; +CARV6.25 PO; +CARV6.2579 PO; +DOCU-216 PO; -DOCU240C14 PO; +LEVO500T72 PO; -LISI-313 PO; +LISI20TA11 PO; -PANT40TA3 PO
[2017-04-15] MEDS ORDERED: ASPIRIN 325 MG TAB PO STA (21:42)
[2017-04-15] MEDS ORDERED: morphine 4 MG/ML VIAL IV STA (21:42)
[2017-04-15] MEDS ORDERED: NITROGLYCERIN 2% 1 GM OINT PKT TD STA (21:42)
[2017-04-15] MEDS ORDERED: ONDANSETRON 4 MG INJ IV STA (21:42)
--- NOTE | 2017-04-15 22:31 | RADRPT ---
PROCEDURE: XR Chest. CLINICAL INDICATION: Shortness of breath. TECHNIQUE: Single frontal view. COMPARISON: 12/14/2016. FINDINGS: There is mild left basilar atelectasis. The lungs are otherwise clear. The heart is enlarged. There is calcification in the aorta consistent with atherosclerosis. There is no pleural effusion. There is no pneumothorax. 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 IMPRESSION: 1. Atherosclerosis. 2. Mild left basilar atelectasis. 3. Cardiomegaly. 4. Left shoulder reverse arthroplasty. RPTAT: QQ .Erik Rogers MD, MD Date Time Electronically viewed and signed by .Erik Rogers MD, on 04/15/2017 22:30 .R/
[2017-04-15] MEDS ORDERED: TAMS0.4C2 PO (23:41)
[2017-04-15] MEDS ORDERED: DOCU-159 PO (23:41)
[2017-04-15] MEDS ORDERED: FURO20TA3 PO (23:41)
[2017-04-15] MEDS ORDERED: CHOL200073 PO (23:41)
[2017-04-15] MEDS ORDERED: MULT1TAB10 PO (23:41)
[2017-04-16] VITALS (14 sets, daily range): BP systolic 136–175; BP diastolic 61–81; PULSE 47–77; RESP 18; TEMP 98.2; Ht 167.6 cm; Wt 69.2 kg
[2017-04-16] MEDS ORDERED: morphine 2 MG INJ IV PRN (00:30)
[2017-04-16] MEDS ORDERED: NACL 0.9% 3 ML SYG IV SCH (00:30)
[2017-04-16] MEDS ORDERED: NITROGLYCERIN (SL) 0.4 MG TAB SL PRN (00:30)
[2017-04-16] MEDS ORDERED: MAGNESIUM HYDROXIDE 30ML CUP PO PRN (00:30)
[2017-04-16] MEDS ORDERED: ACETAMINOPHEN 325 MG TAB PO PRN (00:30)
[2017-04-16] MEDS ORDERED: BISACODYL (EC) 5 MG TAB PO PRN (00:30)
[2017-04-16] MEDS ORDERED: DOCUSATE SODIUM 100 MG CAP PO PRN ×2 (00:30)
[2017-04-16] MEDS ORDERED: ONDANSETRON 4 MG INJ IV PRN (00:30)
--- NOTE | 2017-04-16 02:52 | ERD ---
ER Documentation Chief Complaint Chief Complaint substernal CP x HPI This is an 86-year-old male comes in with complaints of substernal chest pain for the past 2 days getting progressively worse. Last 6 hours is gotten moderately severe. He is also noticed edema in his lower extremities. Blood pressures been reading over the past few days. No nausea no vomiting no chills. Chest pain is mild to moderate in intensity, substernal with no exacerbating or alleviating factors with associated shortness of breath and diaphoresis. Patient does have history of hypertension hyperlipidemia. No other current complaints at this time. ROS All systems reviewed and are negative except as per history of present illness. Medications Home Meds Active Scripts Docusate Sodium (Dok) 100 Mg Capsule, 100 MG PO Q12H Y for CONSTIPATION for 28 Days, CAP Prov:DAVIS KIRBY MD 12/16/16 Carvedilol* (Carvedilol*) 6.25 Mg Tablet, 6.25 MG PO BID for 28 Days, TAB Prov:DAVIS KIRBY MD 12/16/16 Reported Medications Docusate Sodium* (Docusate Sodium*) 100 Mg Capsule, 100 MG PO Q12H for CONSTIPATION, #30 CAP 04/15/17 Tamsulosin Hcl* (Tamsulosin Hcl*) 0.4 Mg Cap.er.24h, 0.4 MG PO HS, CAP 04/15/17 Furosemide* (Furosemide*) 20 Mg Tablet, 20 MG PO BID, #30 TAB 04/15/17 Multivitamin W-Minerals/Lutein (CENTRUM SILVER ULTRA MEN'S TAB) 1 Each Tablet, 1 EACH PO, TAB 04/15/17 Cholecalciferol (Vitamin D3) (VITAMIN D-3) 2,000 Unit Capsule, 2000 UNIT PO, CAP 04/15/17 Aspirin* (Aspirin* Chew) 81 Mg Tab.chew, 81 MG PO DAILY, TAB.CHEW 12/10/16 Lisinopril* (Lisinopril*) 20 Mg Tablet, 20 MG PO DAILY, #30 TAB 12/10/16 Finasteride* (Finasteride*) 5 Mg Tablet, 5 MG PO DAILY, TAB 03/01/14 Discontinued Reported Medications Baclofen* (Baclofen*) 10 Mg Tablet, 10 MG PO BID, TAB 12/10/16 Discontinued Scripts Carvedilol* (Coreg*) 6.25 Mg Tablet, 6.25 MG PO BID, #60 TAB Prov:DAVIS KIRBY MD 12/16/16 Amlodipine Besylate* (Amlodipine Besylate*) 5 Mg Tablet, 5 MG PO BID for 28 Days , TAB Prov:DAVIS KIRBY MD 12/16/16 Levofloxacin* (Levaquin*) 500 Mg Tablet, 500 MG PO DAILY@06 for 7 Days, TAB Prov:DAVIS KIRBY MD 12/16/16 Meclizine Hcl* (Meclizine Hcl*) 25 Mg Tablet, 25 MG PO TID Y for veritigo for 28 Days, TAB Prov:DAVIS KIRBY MD 12/16/16 Allergies Allergies: Coded Allergies: No Known Allergy (Verified , 04/15/17) PMhx/Soc History of Surgery: Yes (LEFT HIP SX,RIGHT SHOULDER SX,RIGHT WRIST SX) Anesthesia Reaction: No Hx Neurological Disorder: No Hx Respiratory Disorders: No Hx Cardiac Disorders: Yes (Hypertension, unable to recall other hx) Hx Psychiatric Problems: No Hx Miscellaneous Medical Probl: Yes (anemia,gastritis,schatzi jorge a, leukocytosis, htn,afib,peptic ulcer, BPH) Hx Alcohol Use: No Hx Substance Use: No Hx Tobacco Use: Yes (Quit cigarettes 30+ years ago) Smoking Status: Former smoker Physical Exam Vitals Vital Signs Date Time Temp Pulse Resp B/P Pulse Ox O2 Delivery O2 Flow Rate FiO2 04/15/17 22:05 98.2 71 21 203/75 93 Room Air 04/15/17 21:26 97.7 69 16 212/88 97 Physical Exam Const: [] Head: Atraumatic Eyes: Normal Conjunctiva ENT: Normal External Ears, Nose and Mouth. Neck: Full range of motion..~ No meningismus. Resp: Scattered rales in all lung bermudez Cardio: Regular rate and rhythm, no murmurs Abd: Soft, non tender, non distended. Normal bowel sounds Skin: No petechiae or rashes Back: No midline or flank tenderness Ext: 2+ pitting edema bilateral lower extremities Neur: Awake and alert Psych: Normal Mood and Affect Result Diagram: 04/15/17220004/15/172200 Results 24 hrs Laboratory Tests Test 04/15/17 22:01 White Blood Count 11.310^3/ul Red Blood Count 3.1410^6/ul Hemoglobin 9.5g/dl Hematocrit 30.4% Mean Corpuscular Volume 96.8fl Mean Corpuscular Hemoglobin 30.3pg Mean Corpuscular Hemoglobin Concent 31.3g/dl Red Cell Distribution Width 14.6% Platelet Count 12493^3/UL Mean Platelet Volume 10.1fl Neutrophils % 65.8% Lymphocytes % 20.9% Monocytes % 9.6% Eosinophils % 2.7% Basophils % 0.6% Nucleated Red Blood Cells % 0.0/100WBC Neutrophils # 7.510^3/ul Lymphocytes # 2.410^3/ul Monocytes # 1.110^3/ul Eosinophils # 0.310^3/ul Basophils # 0.110^3/ul Nucleated Red Blood Cells # 0.010^3/ul Prothrombin Time 13.1Sec Prothrombin Time Ratio 1.0 INR International Normalized Ratio 0.99 Activated Partial Thromboplast Time 34.5Sec Sodium Level 147mmol/L Potassium Level 3.7mmol/L Chloride Level 107mmol/L Carbon Dioxide Level 26mmol/L Anion Gap 18 Blood Urea Nitrogen 33mg/dl Creatinine 1.71mg/dl Glucose Level 93mg/dl Calcium Level 8.8mg/dl Total Bilirubin 0.1mg/dl Direct Bilirubin 0.00mg/dl Indirect Bilirubin 0.1mg/dl Aspartate Amino Transf (AST/SGOT) 24IU/L Alanine Aminotransferase (ALT/SGPT) 34IU/L Alkaline Phosphatase 105IU/L Troponin I < 0.012ng/ml B-Type Natriuretic Peptide 2860PG/ML Total Protein 6.8g/dl Albumin 4.3g/dl Globulin 2.50g/dl Albumin/Globulin Ratio 1.72 Current Medications Medications (Trade) Dose Ordered Sig/Sylvia Route PRN Reason Start Time Stop Time Status Last Admin Dose Admin Aspirin (Aspirin) 325 mg ONCE STAT PO 04/15/17 21:42 04/15/17 21:44 DC 04/15/17 22:02 Nitroglycerin (Nitroglycerin 2% Oint) 1 inch ONCE STAT TD 04/15/17 21:42 04/15/17 21:44 DC 04/15/17 22:03 Morphine Sulfate (morphine) 4 mg ONCE STAT IV 04/15/17 21:42 04/15/17 21:44 DC 04/15/17 22:02 Ondansetron HCl (Zofran Inj) 4 mg ONCE STAT IV 04/15/17 21:42 04/15/17 21:44 DC 04/15/17 22:02 Aspirin (Aspirin) 81 mg DAILY PO 04/16/17 09:00 04/16/17 09:00 DC Carvedilol (Coreg) 6.25 mg BID PO 04/16/17 09:00 Cholecalciferol (Vitamin D) 2,000 unit DAILY PO 04/16/17 09:00 Docusate Sodium (Colace) 100 mg Q12H PRN PO CONSTIPATION 04/16/17 00:30 04/16/17 00:45 DC Finasteride (Proscar) 5 mg DAILY PO 04/16/17 09:00 Furosemide (Lasix) 20 mg BID DIURETICS PO 04/16/17 06:00 Lisinopril (Zestril) 20 mg DAILY PO 04/16/17 09:00 Tamsulosin HCl (Flomax) 0.4 mg HS PO 04/16/17 21:00 Aspirin (Aspirin) 81 mg DAILY PO 04/17/17 09:00 Nitroglycerin (Nitroglycerin (Sl Tab) 0.4 Mg) 1 tab Q5M PRN SL CHEST PAIN 04/16/17 00:30 IV Flush (NS 3 ml) 3 ml PER PROTOCOL IV 04/16/17 00:30 Ondansetron HCl (Zofran Inj) 4 mg Q6H PRN IV NAUSEA AND/OR VOMITING 04/16/17 00:30 Acetaminophen (Tylenol Tab) 650 mg Q6H PRN PO PAIN LEVEL 1-3 OR FEVER 04/16/17 00:30 Morphine Sulfate (morphine) 2 mg Q4H PRN IV SEVERE PAIN LEVEL 7-10 04/16/17 00:30 Docusate Sodium (Colace) 100 mg Q12H PRN PO CONSTIPATION 04/16/17 00:30 Magnesium Hydroxide (Milk Of Mag) 30 ml DAILY PRN PO CONSTIPATION 04/16/17 00:30 Bisacodyl (Dulcolax) 5 mg DAILY PRN PO CONSTIPATION 04/16/17 00:30 Pantoprazole (Protonix Iv) 40 mg DAILY@06 IV 04/16/17 06:00 Enoxaparin Sodium (Lovenox) 30 mg DAILY SC 04/16/17 09:00 Procedures/MDM EKG: Rate/Rhythm: [Normal Sinus Rhythm] QRS, ST, T-waves: [No changes consistent w/ acute ischemia] Impression: [No evidence of ischemia or arrhythmia] Chest X-ray 1V Interpreted by me: Soft Tissue: No acute abnormalities Bones: No acute abnormalities Mediastinum/Cardiac Silhouette/Lungs: Interstitial fluid markings. Impression: CHF Patient's symptoms are concerning for cardiac cause will require inpatient workup and continuous monitoring. Further w/u for ischemia, arrhythmia, PE or dissection will be deferred to the inpatient team. Accepting Care Team: Current data and ongoing care discussed. Time: 2 AM Primary Provider: Dr. Urrutia Consulting: [XOXOXO] Outstanding Data: none Departure Diagnosis: Primary Impression: Chest pain Chest pain type: unspecified Qualified Code: R07.9 - Chest pain, unspecified type Condition: Serious JOHN DUENAS Apr 16, 2017 02:52
[2017-04-16] MEDS: PANTOPRAZOLE 40 MG INJ IV SCH (06:06)
[2017-04-16] MEDS: FUROSEMIDE 20 MG TAB PO SCH ×2 (06:06→18:03)
[2017-04-16] MEDS ORDERED: ASPIRIN 81 MG TAB PO SCH (09:00)
[2017-04-16] MEDS: ENOXAPARIN 30 MG/0.3 ML SYG SC SCH ×2 (10:30→14:57)
[2017-04-16] MEDS: LISINOPRIL 20 MG TAB PO SCH ×2 (10:30→20:38)
[2017-04-16] MEDS: FINASTERIDE 5 MG TAB PO SCH ×2 (10:30→14:55)
[2017-04-16] MEDS: CHOLECALCIFEROL 2,000 UNIT CAP PO SCH ×2 (10:30→14:55)
--- NOTE | 2017-04-16 17:45 | CONS ---
Date/Time of Note Date/Time of Note DATE: 04/16/17 TIME: 17:39 Assessment/Plan Assessment/Plan Additional Assessment/Plan Acute decompensated diastolic congestive heart failure Uncontrolled hypertension, improved Acute kidney injury with history of CKD Mild to moderate aortic stenosis Preserved ejection fraction -Since admission, the patient's blood pressure trend has improved on current medication regimen. Serial cardiac enzymes have remained negative, ECG with no significant ischemic abnormalities. He does have lower extremity edema and his renal function has worsened. Diuretics are being managed by our nephrology colleagues. Patient also with history of aortic stenosis, will check echocardiogram. Would continue telemetry monitoring. Consultation Date/Type/Reason Admit Date/Time Apr 16, 2017 at 00:04 Type of Consultation: cv Reason for Consultation Lower extremity edema and uncontrolled blood pressure Hx of Present Illness This is an 86-year-old male known to me from recent previous admission presents with uncontrolled blood pressure and lower extremity edema. Patient states over the past few nights, his blood pressure has been above 200. At times this is caused symptoms of shortness of breath and chest discomfort. He also complains of chest discomfort in the morning when he wakes up which improves with rubbing his chest. At times he feels he cannot take in a deep breath. Furthermore, he has been complaining of increased lower extremity edema over the past 10 days. He does also complain of fatigue. Since his admission, he is currently better he denies any chest discomfort, shortness of breath. His lower extremity edema does still bother him. He denies any dizziness or lightheadedness or blood in the stool. 12 point review of systems was performed with all pertinent positives and negatives mentioned above and all else is negative Past Medical History Aortic stenosis History of GI bleed Medical History: congestive heart failure, hypertension, renal disease Family History Significant Family History: no pertinent family hx Social History Smoking Status: Never smoker Exam/Review of Systems Vital Signs Vitals Vital Signs Date Time Temp Pulse Resp B/P Pulse Ox O2 Delivery O2 Flow Rate FiO2 04/16/17 16:15 77 04/16/17 16:00 98.2 18 139/65 95 Room Air Exam No apparent distress, no dyspnea with speaking Constitutional: alert, oriented Head: normocephalic Respiratory: other (Coarse breath sounds bilaterally, no wheezing) Cardiovascular: other (S1-S2 heard), regular rate and rhythm, systolic murmur Gastrointestinal: bowel sounds, non-tender, soft Extremities: edema Results Result Diagram: 04/15/17220004/15/172200 Results 24 hrs Laboratory Tests Test 04/15/17 22:01 04/16/17 06:05 04/16/17 12:42 White Blood Count 11.3 H Red Blood Count 3.14 L Hemoglobin 9.5 L Hematocrit 30.4 L Mean Corpuscular Volume 96.8 Mean Corpuscular Hemoglobin 30.3 Mean Corpuscular Hemoglobin Concent 31.3 L Red Cell Distribution Width 14.6 H Platelet Count 244 Mean Platelet Volume 10.1 Neutrophils % 65.8 Lymphocytes % 20.9 Monocytes % 9.6 Eosinophils % 2.7 Basophils % 0.6 Nucleated Red Blood Cells % 0.0 Neutrophils # 7.5 Lymphocytes # 2.4 Monocytes # 1.1 H Eosinophils # 0.3 Basophils # 0.1 Nucleated Red Blood Cells # 0.0 Prothrombin Time 13.1 Prothrombin Time Ratio 1.0 INR International Normalized Ratio 0.99 Activated Partial Thromboplast Time 34.5 Sodium Level 147 H Potassium Level 3.7 Chloride Level 107 Carbon Dioxide Level 26 Anion Gap 18 H Blood Urea Nitrogen 33 H Creatinine 1.71 H Glucose Level 93 Calcium Level 8.8 Total Bilirubin 0.1 L Direct Bilirubin 0.00 Indirect Bilirubin 0.1 Aspartate Amino Transf (AST/SGOT) 24 Alanine Aminotransferase (ALT/SGPT) 34 Alkaline Phosphatase 105 Troponin I < 0.012 0.044 0.027 B-Type Natriuretic Peptide 2860 H Total Protein 6.8 Albumin 4.3 Globulin 2.50 Albumin/Globulin Ratio 1.72 Medications Medications Current Medications Carvedilol (Coreg) 6.25 mg BID PO ; Start 04/16/17 at 09:00 Cholecalciferol (Vitamin D) 2,000 unit DAILY PO Last administered on 14:55; Admin Dose 2,000 UNIT; Start 04/16/17 at 09:00 Finasteride (Proscar) 5 mg DAILY PO Last administered on 04/16/17 14:55; Admin Dose 5 MG; Start 04/16/17 at 09:00 Lisinopril (Zestril) 20 mg DAILY PO ; Start 04/16/17 at 09:00 Tamsulosin HCl (Flomax) 0.4 mg HS PO ; Start 04/16/17 at 21:00 Aspirin (Aspirin) 81 mg DAILY PO ; Start 04/17/17 at 09:00 Nitroglycerin (Nitroglycerin (Sl Tab) 0.4 Mg) 1 tab Q5M PRN SL CHEST PAIN; Start 04/16/17 at 00:30 Ondansetron HCl (Zofran Inj) 4 mg Q6H PRN IV NAUSEA AND/OR VOMITING; Start at 00:30 Acetaminophen (Tylenol Tab) 650 mg Q6H PRN PO PAIN LEVEL 1-3 OR FEVER Last administered on 04/16/17 17:10; Admin Dose 650 MG; Start 04/16/17 at 00:30 Morphine Sulfate (morphine) 2 mg Q4H PRN IV SEVERE PAIN LEVEL 7-10; Start at 00:30 Docusate Sodium (Colace) 100 mg Q12H PRN PO CONSTIPATION; Start 04/16/17 at 00 :30 Magnesium Hydroxide (Milk Of Mag) 30 ml DAILY PRN PO CONSTIPATION; Start 04/16 at 00:30 Bisacodyl (Dulcolax) 5 mg DAILY PRN PO CONSTIPATION; Start 04/16/17 at 00:30 Pantoprazole (Protonix Iv) 40 mg DAILY@06 IV Last administered on 04/16/17 06 :06; Admin Dose 40 MG; Start 04/16/17 at 06:00 Enoxaparin Sodium (Lovenox) 30 mg DAILY SC Last administered on 04/16/17 14: 57; Admin Dose 30 MG; Start 04/16/17 at 09:00 Procedures Procedures ECG demonstrates sinus rhythm at 69 bpm, first-degree AV block with MI interval 246 ms, QRS 84 ms, nonspecific ST abnormalities Barron Hilliard DO Apr 16, 2017 17:45
--- NOTE | 2017-04-16 18:12 | QN ---
Documentation Comment [id number] DAVIS KIRBY MD Apr 16, 2017 18:12
--- NOTE | 2017-04-16 18:12 | QN ---
Documentation Comment [id number] DAVIS KIRBY MD Apr 16, 2017 18:12
--- NOTE | 2017-04-16 18:12 | QN ---
Documentation Comment [id number] DAVIS KIRBY MD Apr 16, 2017 18:12
[2017-04-16] MEDS: FUROSEMIDE 20 MG INJ IV SCH (20:39)
[2017-04-16] MEDS: TAMSULOSIN (SR) 0.4 MG CAP PO SCH (20:40)
[2017-04-17] VITALS (12 sets, daily range): BP systolic 146–180; BP diastolic 64–76; PULSE 42–56; RESP 17–18
--- NOTE | 2017-04-17 01:59 | HP ---
DATE OF ADMISSION: 04/16/2017 HISTORY OF PRESENT ILLNESS: The patient is an 86-year-old male who has a history of hypertension, aortic stenosis, history of CKD, anemia, history of gynecomastia. Presented with shortness of breath, lower extremity edema and is being admitted for further management. Patient has worsening lower extremity edema, hematocrit 32.8 in the past, creatinine 1.46 in the past. The patient is now noted to have chest x-ray, shows atherosclerosis, mild left basilar atelectasis, cardiomegaly, left shoulder reverse arthroplasty. The patient has WBC 11.3, hematocrit 30.4, platelet count of 244. Sodium 147, potassium 3.7 and patient is going to be monitored for further management. PAST MEDICAL HISTORY: As mentioned above, CKD, ASCAD, hypertension. ALLERGY HISTORY: LISTED NEGATIVE. FAMILY HISTORY: Negative. SOCIAL HISTORY: Negative. HOME MEDICATIONS: 1. Coreg. 2. Flomax. 3. Lasix. 4. Multiple vitamin . 5. Aspirin. 6. Lisinopril. 7. Proscar. REVIEW OF SYSTEMS: HEENT: Unremarkable. RESPIRATORY: Shortness of breath on exertion. ABDOMEN: Unremarkable. EXTREMITIES: Swelling. CENTRAL NERVOUS SYSTEM: Unremarkable. PHYSICAL EXAMINATION: GENERAL: The patient is awake and alert. Anxious at this point. VITAL SIGNS: As mentioned above. HEAD: Atraumatic, normocephalic. EYES: Pupils equal, reactive to light. NECK: Supple. No JVD. LUNGS: Clear anteriorly with basilar rhonchi. CARDIOVASCULAR: S1, S2 normal. ABDOMEN: Soft, nontender. Bowel sounds positive. No palpable mass. EXTREMITIES: No cyanosis, clubbing. Edema positive, lower extremities. CENTRAL NERVOUS SYSTEM: The patient is awake, alert, moving both upper and lower extremities. LABORATORY DATA: Sodium 147, potassium 3.7. The patient's BNP is 2860. IMPRESSION: 1. Acute coronary syndrome, rule out myocardial infarction. 2. Hypertension. 3. Chronic kidney disease. 4. Atherosclerosis. 5. Patient has lower extremity edema. 6. Elevated BNP. 7. Incomplete database. 8. anemia. PLAN: To continue home medication, continue diuretic, add also metolazone. Cardiology consultation. Cardiac diet. Dictated By: DAVIS EMMANUEL/AMARILIS Conf#: [id number] DID#: [id number] MTDD
[2017-04-17] MEDS: PANTOPRAZOLE 40 MG INJ IV SCH (05:22)
[2017-04-17] MEDS: ASPIRIN 81 MG TAB PO SCH (08:18)
[2017-04-17] MEDS: FINASTERIDE 5 MG TAB PO SCH (08:19)
[2017-04-17] MEDS: CHOLECALCIFEROL 2,000 UNIT CAP PO SCH (08:19)
[2017-04-17] MEDS: LISINOPRIL 20 MG TAB PO SCH (08:19)
[2017-04-17] MEDS: METOLAZONE 2.5 MG TAB PO SCH (08:20)
[2017-04-17] MEDS: FUROSEMIDE 20 MG INJ IV SCH ×3 (08:21→20:50)
[2017-04-17] MEDS: ENOXAPARIN 30 MG/0.3 ML SYG SC SCH (08:30)
--- NOTE | 2017-04-17 10:20 | RADRPT ---
Echocardiogram Report Patient Name: CELE ROWE Gender: Male Date: 1930 Study Date: 16-Apr-2017 Vocational Ed Instructor: Aldo Muse [facility] Location: 3302 Ref. Physician: DAVIS KIRBY Quality: Adequate Procedures: Transthoracic echocardiogram with complete 2D, M-Mode, and doppler examination. Indications: Coronary Artery Disease. 2D/M Mode Doppler Measurement Value Normal Ranges Measurement Value Normal Ranges LVIDd 2D 4.4 3.5 - 5.6 cm MARLON Vmax 1.2 cm2 LVIDs 2D 3.0 2.1 - 4.1 cm MARLON VTI 1.3 cm2 FS 2D 33.7 % AV Mean Fernando 2.2 m/sec LVPWd 2D 1.5 0.6 - 1.1 cm AV Mean PG 23.0 mmHg IVSd 2D 1.5 0.6 - 1.1 cm AV Peak Fernando 3.5 m/sec IVS/LVPW 2D 1.0 AV Peak PG 49.0 mmHg AoR Diam 2D 3.0 2.0 - 3.7 cm AV VTI 88.5 cm LA/Ao 2D 1 0 - 1 AI Peak PG 83.0 mmHg EDV 2D 88.1 cm3 AI Peak Fernando 4.6 m/sec ESV 2D 25.7 cm3 AI PHT 537.0 msec LA Dimen 2D 4.3 2.3 - 4.0 cm LVOT Mean Fernando 0.8 m/sec LVOT Diam 2.1 cm LVOT Mean PG 3.0 mmHg LVOT Area 3.5 cm2 LVOT Peak Fernando 1.2 m/sec LVOT Peak PG 6.0 mmHg LVOT VTI 32.5 cm MV E Peak Fernando 0.9 m/sec MV A Peak Fernando 0.5 m/sec MV E/A 1.7 MV Decel Time 218 msec MV E/A 1.7 TR Peak Fernando 3.3 m/sec TR Peak PG 43.0 mmHg RVSP 51.0 mmHg Findings Left Ventricle: Normal left ventricular systolic function. Normal left ventricular cavity size. Moderate concentric left ventricular hypertrophy. Ejection fraction is visually estimated at 60 %. Tissue Doppler/Mitral Doppler indices are consistent with pseudonormalization with mildly elevated left atrial pressure (Stage II diastolic dysfunction). Right Ventricle: Normal right ventricular size. Normal right ventricular systolic function. Left Atrium: There is mild enlargement of left atrium. Right Atrium: The right atrium is normal in size. Mitral Valve: Mild mitral leaflet calcification. Mild mitral annular calcification. Mild mitral valve regurgitation. Aortic Valve: Mild to moderate aortic stenosis. Mean PG 23.00 mmHg. Mild aortic valve regurgitation. Tricuspid Valve: Normal appearance of the tricuspid valve. Estimated peak PA systolic pressure 51 mmHg. There is mild tricuspid regurgitation. Pulmonic Valve: Pulmonic valve not well visualized. There is trace pulmonic regurgitation. Pericardium: Trivial pericardial effusion. Aorta: Normal aortic root. IVC: Normal size with poor respiratory collapse consistent with elevated right atrial pressure. Conclusions Normal left ventricular systolic function. Normal left ventricular cavity size. Moderate concentric left ventricular hypertrophy. Ejection fraction is visually estimated at 60 %. Tissue Doppler/Mitral Doppler indices are consistent with pseudonormalization with mildly elevated left atrial pressure (Stage II diastolic dysfunction). Normal right ventricular size. Normal right ventricular systolic function. There is mild enlargement of left atrium. The right atrium is normal in size. Mild to moderate aortic stenosis. Mild aortic valve regurgitation. Mild mitral valve regurgitation. Estimated peak PA systolic pressure 51 mmHg. There is mild tricuspid regurgitation. Trivial pericardial effusion. Electronically Signed By: Barron Hilliard 17-Apr-2017 10:19:23 -0700 Patient Name: CELE ROWE Study Date: 16-Apr-2017 [id number]
--- NOTE | 2017-04-17 10:20 | RADRPT ---
Echocardiogram Report Patient Name: CELE ROWE Gender: Male Date: 1930 Study Date: 16-Apr-2017 Pediatric Hospitalist: Aldo Muse [facility] Location: 3302 Ref. Physician: DAVIS KIRBY Quality: Adequate Procedures: Transthoracic echocardiogram with complete 2D, M-Mode, and doppler examination. Indications: Coronary Artery Disease. 2D/M Mode Doppler Measurement Value Normal Ranges Measurement Value Normal Ranges LVIDd 2D 4.4 3.5 - 5.6 cm MARLON Vmax 1.2 cm2 LVIDs 2D 3.0 2.1 - 4.1 cm MARLON VTI 1.3 cm2 FS 2D 33.7 % AV Mean Fernando 2.2 m/sec LVPWd 2D 1.5 0.6 - 1.1 cm AV Mean PG 23.0 mmHg IVSd 2D 1.5 0.6 - 1.1 cm AV Peak Fernando 3.5 m/sec IVS/LVPW 2D 1.0 AV Peak PG 49.0 mmHg AoR Diam 2D 3.0 2.0 - 3.7 cm AV VTI 88.5 cm LA/Ao 2D 1 0 - 1 AI Peak PG 83.0 mmHg EDV 2D 88.1 cm3 AI Peak Fernando 4.6 m/sec ESV 2D 25.7 cm3 AI PHT 537.0 msec LA Dimen 2D 4.3 2.3 - 4.0 cm LVOT Mean Fernando 0.8 m/sec LVOT Diam 2.1 cm LVOT Mean PG 3.0 mmHg LVOT Area 3.5 cm2 LVOT Peak Fernando 1.2 m/sec LVOT Peak PG 6.0 mmHg LVOT VTI 32.5 cm MV E Peak Fernando 0.9 m/sec MV A Peak Fernando 0.5 m/sec MV E/A 1.7 MV Decel Time 218 msec MV E/A 1.7 TR Peak Fernando 3.3 m/sec TR Peak PG 43.0 mmHg RVSP 51.0 mmHg Findings Left Ventricle: Normal left ventricular systolic function. Normal left ventricular cavity size. Moderate concentric left ventricular hypertrophy. Ejection fraction is visually estimated at 60 %. Tissue Doppler/Mitral Doppler indices are consistent with pseudonormalization with mildly elevated left atrial pressure (Stage II diastolic dysfunction). Right Ventricle: Normal right ventricular size. Normal right ventricular systolic function. Left Atrium: There is mild enlargement of left atrium. Right Atrium: The right atrium is normal in size. Mitral Valve: Mild mitral leaflet calcification. Mild mitral annular calcification. Mild mitral valve regurgitation. Aortic Valve: Mild to moderate aortic stenosis. Mean PG 23.00 mmHg. Mild aortic valve regurgitation. Tricuspid Valve: Normal appearance of the tricuspid valve. Estimated peak PA systolic pressure 51 mmHg. There is mild tricuspid regurgitation. Pulmonic Valve: Pulmonic valve not well visualized. There is trace pulmonic regurgitation. Pericardium: Trivial pericardial effusion. Aorta: Normal aortic root. IVC: Normal size with poor respiratory collapse consistent with elevated right atrial pressure. Conclusions Normal left ventricular systolic function. Normal left ventricular cavity size. Moderate concentric left ventricular hypertrophy. Ejection fraction is visually estimated at 60 %. Tissue Doppler/Mitral Doppler indices are consistent with pseudonormalization with mildly elevated left atrial pressure (Stage II diastolic dysfunction). Normal right ventricular size. Normal right ventricular systolic function. There is mild enlargement of left atrium. The right atrium is normal in size. Mild to moderate aortic stenosis. Mild aortic valve regurgitation. Mild mitral valve regurgitation. Estimated peak PA systolic pressure 51 mmHg. There is mild tricuspid regurgitation. Trivial pericardial effusion. Electronically Signed By: Barron Hilliard 17-Apr-2017 10:19:23 -0700 Patient Name: CELE ROWE Study Date: 16-Apr-2017 [id number]
--- NOTE | 2017-04-17 10:20 | RADRPT ---
Echocardiogram Report Patient Name: CELE ROWE Gender: Male Date: 1930 Study Date: 16-Apr-2017 Automation Architect: Aldo Muse [facility] Location: 3302 Ref. Physician: DAVIS KIRBY Quality: Adequate Procedures: Transthoracic echocardiogram with complete 2D, M-Mode, and doppler examination. Indications: Coronary Artery Disease. 2D/M Mode Doppler Measurement Value Normal Ranges Measurement Value Normal Ranges LVIDd 2D 4.4 3.5 - 5.6 cm MARLON Vmax 1.2 cm2 LVIDs 2D 3.0 2.1 - 4.1 cm MARLON VTI 1.3 cm2 FS 2D 33.7 % AV Mean Fernando 2.2 m/sec LVPWd 2D 1.5 0.6 - 1.1 cm AV Mean PG 23.0 mmHg IVSd 2D 1.5 0.6 - 1.1 cm AV Peak Fernando 3.5 m/sec IVS/LVPW 2D 1.0 AV Peak PG 49.0 mmHg AoR Diam 2D 3.0 2.0 - 3.7 cm AV VTI 88.5 cm LA/Ao 2D 1 0 - 1 AI Peak PG 83.0 mmHg EDV 2D 88.1 cm3 AI Peak Fernando 4.6 m/sec ESV 2D 25.7 cm3 AI PHT 537.0 msec LA Dimen 2D 4.3 2.3 - 4.0 cm LVOT Mean Fernando 0.8 m/sec LVOT Diam 2.1 cm LVOT Mean PG 3.0 mmHg LVOT Area 3.5 cm2 LVOT Peak Fernando 1.2 m/sec LVOT Peak PG 6.0 mmHg LVOT VTI 32.5 cm MV E Peak Fernando 0.9 m/sec MV A Peak Fernando 0.5 m/sec MV E/A 1.7 MV Decel Time 218 msec MV E/A 1.7 TR Peak Fernando 3.3 m/sec TR Peak PG 43.0 mmHg RVSP 51.0 mmHg Findings Left Ventricle: Normal left ventricular systolic function. Normal left ventricular cavity size. Moderate concentric left ventricular hypertrophy. Ejection fraction is visually estimated at 60 %. Tissue Doppler/Mitral Doppler indices are consistent with pseudonormalization with mildly elevated left atrial pressure (Stage II diastolic dysfunction). Right Ventricle: Normal right ventricular size. Normal right ventricular systolic function. Left Atrium: There is mild enlargement of left atrium. Right Atrium: The right atrium is normal in size. Mitral Valve: Mild mitral leaflet calcification. Mild mitral annular calcification. Mild mitral valve regurgitation. Aortic Valve: Mild to moderate aortic stenosis. Mean PG 23.00 mmHg. Mild aortic valve regurgitation. Tricuspid Valve: Normal appearance of the tricuspid valve. Estimated peak PA systolic pressure 51 mmHg. There is mild tricuspid regurgitation. Pulmonic Valve: Pulmonic valve not well visualized. There is trace pulmonic regurgitation. Pericardium: Trivial pericardial effusion. Aorta: Normal aortic root. IVC: Normal size with poor respiratory collapse consistent with elevated right atrial pressure. Conclusions Normal left ventricular systolic function. Normal left ventricular cavity size. Moderate concentric left ventricular hypertrophy. Ejection fraction is visually estimated at 60 %. Tissue Doppler/Mitral Doppler indices are consistent with pseudonormalization with mildly elevated left atrial pressure (Stage II diastolic dysfunction). Normal right ventricular size. Normal right ventricular systolic function. There is mild enlargement of left atrium. The right atrium is normal in size. Mild to moderate aortic stenosis. Mild aortic valve regurgitation. Mild mitral valve regurgitation. Estimated peak PA systolic pressure 51 mmHg. There is mild tricuspid regurgitation. Trivial pericardial effusion. Electronically Signed By: Barron Hilliard 17-Apr-2017 10:19:23 -0700 Patient Name: CELE ROWE Study Date: 16-Apr-2017 [id number]
--- NOTE | 2017-04-17 11:19 | CONS ---
Date/Time of Note Date/Time of Note DATE: 04/17/17 TIME: 11:16 Assessment/Plan Assessment/Plan Additional Assessment/Plan Acute decompensated diastolic congestive heart failure Uncontrolled hypertension, labile Acute kidney injury with history of CKD Mild to moderate aortic stenosis Preserved ejection fraction -Patient with improvement in symptoms of shortness of breath and lower extremity edema after diuretics have been uptitrated as per our nephrology colleagues. BMP today still pending. Blood pressure has been elevated today, based on creatinine results, if improved, would adjust lisinopril to twice daily dosing. Patient with frequent episodes of bradycardia but has remained asymptomatic. Would decrease dose of Coreg. Maintain potassium above 4.0 and magnesium above 2.0. Consultation Date/Type/Reason Admit Date/Time Apr 16, 2017 at 00:04 Initial Consult Date Type of Consultation: cv 24 HR Interval Summary Free Text/Dictation Feeling better today, denies shortness of breath or chest discomfort. Lower extremity swelling has improved, denies dizziness or palpitations Exam/Review of Systems Vital Signs Vitals Vital Signs Date Time Temp Pulse Resp B/P Pulse Ox O2 Delivery O2 Flow Rate FiO2 04/17/17 08:00 54 04/17/17 07:52 97.4 18 180/76 96 04/16/17 17:51 Room Air Intake and Output 04/16/17 04/16/17 04/17/17 15:00 23:00 07:00 Intake Total 800 ml 500 ml Output Total 1200 ml 1000 ml Balance -400 ml -500 ml Exam No apparent distress Constitutional: alert, oriented Head: normocephalic Respiratory: other (Coarse breath sounds bilaterally, no wheezing) Cardiovascular: other (S1-S2 heard), regular rate and rhythm, systolic murmur Gastrointestinal: bowel sounds, non-tender, soft Extremities: edema Results Result Diagram: 04/17/17 0705 04/15/171 Results 24 hrs Laboratory Tests Test 04/16/17 12:42 04/17/17 07:05 Troponin I 0.027 White Blood Count 8.8 # Red Blood Count 3.12 L Hemoglobin 9.6 L Hematocrit 30.1 L Mean Corpuscular Volume 96.5 Mean Corpuscular Hemoglobin 30.8 Mean Corpuscular Hemoglobin Concent 31.9 L Red Cell Distribution Width 14.5 Platelet Count 238 Mean Platelet Volume 10.1 Neutrophils % 59.9 Lymphocytes % 25.7 Monocytes % 10.4 Eosinophils % 3.1 Basophils % 0.6 Nucleated Red Blood Cells % 0.0 Neutrophils # 5.3 Lymphocytes # 2.3 Monocytes # 0.9 Eosinophils # 0.3 Basophils # 0.1 Nucleated Red Blood Cells # 0.0 Triglycerides Level 60 Cholesterol Level 163 LDL Cholesterol, Calculated 100 HDL Cholesterol 51 Cholesterol/HDL Ratio 3.1 Medications Medications Current Medications Carvedilol (Coreg) 6.25 mg BID PO Last administered on 04/17/17 08:20; Admin Dose 6.25 MG; Start 04/16/17 at 09:00 Cholecalciferol (Vitamin D) 2,000 unit DAILY PO Last administered on 04/17/17 08:19; Admin Dose 2,000 UNIT; Start 04/16/17 at 09:00 Finasteride (Proscar) 5 mg DAILY PO Last administered on 04/17/17 08:19; Admin Dose 5 MG; Start 04/16/17 at 09:00 Lisinopril (Zestril) 20 mg DAILY PO Last administered on 04/17/17 08:19; Admin Dose 20 MG; Start 04/16/17 at 09:00 Tamsulosin HCl (Flomax) 0.4 mg HS PO Last administered on 04/16/17 20:40; Admin Dose 0.4 MG; Start 04/16/17 at 21:00 Aspirin (Aspirin) 81 mg DAILY PO Last administered on 04/17/17 08:18; Admin Dose 81 MG; Start 04/17/17 at 09:00 Nitroglycerin (Nitroglycerin (Sl Tab) 0.4 Mg) 1 tab Q5M PRN SL CHEST PAIN; Start 04/16/17 at 00:30 Ondansetron HCl (Zofran Inj) 4 mg Q6H PRN IV NAUSEA AND/OR VOMITING; Start at 00:30 Acetaminophen (Tylenol Tab) 650 mg Q6H PRN PO PAIN LEVEL 1-3 OR FEVER Last administered on 04/16/17 17:10; Admin Dose 650 MG; Start 04/16/17 at 00:30 Morphine Sulfate (morphine) 2 mg Q4H PRN IV SEVERE PAIN LEVEL 7-10; Start at 00:30 Docusate Sodium (Colace) 100 mg Q12H PRN PO CONSTIPATION; Start 04/16/17 at 00 :30 Magnesium Hydroxide (Milk Of Mag) 30 ml DAILY PRN PO CONSTIPATION; Start 04/16 at 00:30 Bisacodyl (Dulcolax) 5 mg DAILY PRN PO CONSTIPATION; Start 04/16/17 at 00:30 Pantoprazole (Protonix Iv) 40 mg DAILY@06 IV Last administered on 04/17/17 05: 22; Admin Dose 40 MG; Start 04/16/17 at 06:00 Enoxaparin Sodium (Lovenox) 30 mg DAILY SC Last administered on 04/17/17 08:30 ; Admin Dose 30 MG; Start 04/16/17 at 09:00 Furosemide (Lasix) 20 mg TID IV Last administered on 04/17/17 08:21; Admin Dose 20 MG; Start 04/16/17 at 21:00 Metolazone (Zaroxolyn) 2.5 mg DAILY PO Last administered on 04/17/17 08:20; Admin Dose 2.5 MG; Start 04/17/17 at 09:00 Barron Hilliard DO Apr 17, 2017 11:19
[2017-04-17] MEDS: AMLODIPINE 2.5 MG TAB PO SCH (12:17)
--- NOTE | 2017-04-17 19:03 | PN ---
Date/Time of Note Date/Time of Note DATE: 04/17/17 TIME: 19:00 Assessment/Plan VTE Prophylaxis VTE Prophylaxis Intervention: other Lines/Catheters IV Catheter Type (from Nrsg): Saline Lock Assessment/Plan Chief Complaint/Hosp Course ckd cad htn edema ashd plan diuretic Problems: Subjective 24 Hr Interval Summary Respiratory: shortness of breath (neg) Gastrointestinal: no complaints Genitourinary: no complaints Exam/Review of Systems Vital Signs Vitals Vital Signs Date Time Temp Pulse Resp B/P Pulse Ox O2 Delivery O2 Flow Rate FiO2 04/17/17 16:00 53 04/17/17 15:11 97.9 17 167/74 91 04/16/17 17:51 Room Air Intake and Output 04/16/17 04/16/17 04/17/17 15:00 23:00 07:00 Intake Total 800 ml 500 ml Output Total 1200 ml 1000 ml Balance -400 ml -500 ml Exam Neck: supple Respiratory: clear to auscultation Cardiovascular: regular rate and rhythm Gastrointestinal: bowel sounds, soft Extremities: edema (better) Results Result Diagram: 04/17/17 0705 04/17/17 0705 Results 24 hrs Laboratory Tests Test 04/17/17 07:05 White Blood Count 8.8 # Red Blood Count 3.12 L Hemoglobin 9.6 L Hematocrit 30.1 L Mean Corpuscular Volume 96.5 Mean Corpuscular Hemoglobin 30.8 Mean Corpuscular Hemoglobin Concent 31.9 L Red Cell Distribution Width 14.5 Platelet Count 238 Mean Platelet Volume 10.1 Neutrophils % 59.9 Lymphocytes % 25.7 Monocytes % 10.4 Eosinophils % 3.1 Basophils % 0.6 Nucleated Red Blood Cells % 0.0 Neutrophils # 5.3 Lymphocytes # 2.3 Monocytes # 0.9 Eosinophils # 0.3 Basophils # 0.1 Nucleated Red Blood Cells # 0.0 Sodium Level 145 H Potassium Level 3.7 Chloride Level 105 Carbon Dioxide Level 32 H Anion Gap 12 Blood Urea Nitrogen 32 H Creatinine 1.79 H Glucose Level 97 Calcium Level 8.9 Triglycerides Level 60 Cholesterol Level 163 LDL Cholesterol, Calculated 100 HDL Cholesterol 51 Cholesterol/HDL Ratio 3.1 Medications Medications Current Medications Cholecalciferol (Vitamin D) 2,000 unit DAILY PO Last administered on 04/17/17t 08:19; Admin Dose 2,000 UNIT; Start 04/16/17 at 09:00 Finasteride (Proscar) 5 mg DAILY PO Last administered on 04/17/17 08:19; Admin Dose 5 MG; Start 04/16/17 at 09:00 Lisinopril (Zestril) 20 mg DAILY PO Last administered on 04/17/17 08:19; Admin Dose 20 MG; Start 04/16/17 at 09:00 Tamsulosin HCl (Flomax) 0.4 mg HS PO Last administered on 04/16/17 20:40; Admin Dose 0.4 MG; Start 04/16/17 at 21:00 Aspirin (Aspirin) 81 mg DAILY PO Last administered on 04/17/17 08:18; Admin Dose 81 MG; Start 04/17/17 at 09:00 Nitroglycerin (Nitroglycerin (Sl Tab) 0.4 Mg) 1 tab Q5M PRN SL CHEST PAIN; Start 04/16/17 at 00:30 Ondansetron HCl (Zofran Inj) 4 mg Q6H PRN IV NAUSEA AND/OR VOMITING; Start at 00:30 Acetaminophen (Tylenol Tab) 650 mg Q6H PRN PO PAIN LEVEL 1-3 OR FEVER Last administered on 04/16/17 17:10; Admin Dose 650 MG; Start 04/16/17 at 00:30 Morphine Sulfate (morphine) 2 mg Q4H PRN IV SEVERE PAIN LEVEL 7-10; Start at 00:30 Docusate Sodium (Colace) 100 mg Q12H PRN PO CONSTIPATION; Start 04/16/17 at 00 :30 Magnesium Hydroxide (Milk Of Mag) 30 ml DAILY PRN PO CONSTIPATION Last administered on 04/17/17 14:30; Admin Dose 30 ML; Start 04/16/17 at 00:30 Bisacodyl (Dulcolax) 5 mg DAILY PRN PO CONSTIPATION; Start 04/16/17 at 00:30 Enoxaparin Sodium (Lovenox) 30 mg DAILY SC Last administered on 04/17/17 08:30 ; Admin Dose 30 MG; Start 04/16/17 at 09:00 Furosemide (Lasix) 20 mg TID IV Last administered on 04/17/17 12:17; Admin Dose 20 MG; Start 04/16/17 at 21:00 Metolazone (Zaroxolyn) 2.5 mg DAILY PO Last administered on 04/17/17 08:20; Admin Dose 2.5 MG; Start 04/17/17 at 09:00 Carvedilol (Coreg) 3.125 mg BID PO ; Start 04/17/17 at 21:00 Amlodipine Besylate (Norvasc) 2.5 mg DAILY PO Last administered on 04/17/17t 12 :17; Admin Dose 2.5 MG; Start 04/17/17 at 12:00 Pantoprazole (Protonix Tab) 40 mg DAILY@06 PO ; Start 04/18/17 at 06:00 DAVIS KIRBY MD Apr 17, 2017 19:03
[2017-04-17] MEDS ORDERED: BARIUM SULF 2% 450 ML BTL (BERRY SMOOTHIE) PO ONE (19:30)
[2017-04-17] MEDS: TAMSULOSIN (SR) 0.4 MG CAP PO SCH (20:50)
[2017-04-18] VITALS (14 sets, daily range): BP systolic 109–175; BP diastolic 56–74; PULSE 57–82; RESP 16–20
[2017-04-18] MEDS ORDERED: hydrALAzine 20 MG INJ IV PRN (01:00)
[2017-04-18] MEDS: PANTOPRAZOLE (EC) 40 MG TAB PO SCH (05:59)
[2017-04-18] MEDS: FINASTERIDE 5 MG TAB PO SCH (08:25)
[2017-04-18] MEDS: METOLAZONE 2.5 MG TAB PO SCH (08:25)
[2017-04-18] MEDS: LISINOPRIL 20 MG TAB PO SCH (08:25)
[2017-04-18] MEDS: ASPIRIN 81 MG TAB PO SCH (08:25)
[2017-04-18] MEDS: AMLODIPINE 2.5 MG TAB PO SCH (08:25)
[2017-04-18] MEDS: CHOLECALCIFEROL 2,000 UNIT CAP PO SCH (08:26)
[2017-04-18] MEDS: FUROSEMIDE 20 MG INJ IV SCH ×2 (08:26→12:31)
[2017-04-18] MEDS: ENOXAPARIN 30 MG/0.3 ML SYG SC SCH (08:42)
[2017-04-18] MEDS ORDERED: POTASSIUM CHLORIDE (SR) 10 MEQ TAB PO ONE (10:30)
--- NOTE | 2017-04-18 14:35 | CONS ---
Date/Time of Note Date/Time of Note DATE: 04/18/17 TIME: 14:26 Assessment/Plan Assessment/Plan Additional Assessment/Plan Acute decompensated diastolic congestive heart failure Uncontrolled hypertension, labile Acute kidney injury with history of CKD Mild to moderate aortic stenosis Preserved ejection fraction NSVT -Patient with improvement in symptoms of shortness of breath and lower extremity edema after diuretics have adjusted by our nephrology colleagues. Creatinine is rising, in discussion with primary team/nephrology, this is around patient's baseline diuretics are being managed by nephrology. Blood pressure trend overall improving. Patient with brief episodes of nonsustained ventricular tachycardia noted, potassium has already been ordered and would order magnesium supplementation and level for tomorrow. Maintain potassium above 4.0 and magnesium above 2.0. Update and plan of care discussed with patient's daughter over the phone. Consultation Date/Type/Reason Admit Date/Time Apr 16, 2017 at 00:04 Type of Consultation: cv 24 HR Interval Summary Free Text/Dictation Overall feeling better, denies shortness of breath, lower extremity swelling has improved. Denies chest pain or dizziness Exam/Review of Systems Vital Signs Vitals Vital Signs Date Time Temp Pulse Resp B/P Pulse Ox O2 Delivery O2 Flow Rate FiO2 04/18/17 12:12 71 04/18/17 11:28 98.2 19 113/64 96 04/16/17 17:51 Room Air Intake and Output 04/17/17 04/17/17 04/18/17 15:00 23:00 07:00 Intake Total 1000 ml 150 ml Output Total 1700 ml 750 ml Balance -700 ml -600 ml Exam Sitting in chair, no apparent distress Constitutional: alert, oriented Head: normocephalic Respiratory: other (Coarse breath sounds bilaterally, no wheezing) Cardiovascular: other (S1-S2 heard), regular rate and rhythm, systolic murmur Gastrointestinal: bowel sounds, non-tender, soft Extremities: edema (trace) Results Result Diagram: 04/17/17 0705 04/18/17 0654 Results 24 hrs Laboratory Tests Test 04/18/17 06:54 Sodium Level 141 Potassium Level 3.4 L Chloride Level 94 #L Carbon Dioxide Level 35 H Anion Gap 15 Blood Urea Nitrogen 43 #H Creatinine 2.01 H Glucose Level 111 Calcium Level 9.5 Total Bilirubin 0.3 Direct Bilirubin 0.00 Indirect Bilirubin 0.3 Aspartate Amino Transf (AST/SGOT) 24 Alanine Aminotransferase (ALT/SGPT) 30 Alkaline Phosphatase 102 Total Protein 7.4 Albumin 4.0 Globulin 3.40 H Albumin/Globulin Ratio 1.17 Medications Medications Current Medications Cholecalciferol (Vitamin D) 2,000 unit DAILY PO Last administered on 04/18/17 08:26; Admin Dose 2,000 UNIT; Start 04/16/17 at 09:00 Finasteride (Proscar) 5 mg DAILY PO Last administered on 04/18/17 08:25; Admin Dose 5 MG; Start 04/16/17 at 09:00 Lisinopril (Zestril) 20 mg DAILY PO Last administered on 04/18/17 08:25; Admin Dose 20 MG; Start 04/16/17 at 09:00 Tamsulosin HCl (Flomax) 0.4 mg HS PO Last administered on 04/17/17 20:50; Admin Dose 0.4 MG; Start 04/16/17 at 21:00 Aspirin (Aspirin) 81 mg DAILY PO Last administered on 04/18/17 08:25; Admin Dose 81 MG; Start 04/17/17 at 09:00 Nitroglycerin (Nitroglycerin (Sl Tab) 0.4 Mg) 1 tab Q5M PRN SL CHEST PAIN; Start 04/16/17 at 00:30 Ondansetron HCl (Zofran Inj) 4 mg Q6H PRN IV NAUSEA AND/OR VOMITING; Start at 00:30 Acetaminophen (Tylenol Tab) 650 mg Q6H PRN PO PAIN LEVEL 1-3 OR FEVER Last administered on 04/16/17 17:10; Admin Dose 650 MG; Start 04/16/17 at 00:30 Morphine Sulfate (morphine) 2 mg Q4H PRN IV SEVERE PAIN LEVEL 7-10; Start at 00:30 Docusate Sodium (Colace) 100 mg Q12H PRN PO CONSTIPATION; Start 04/16/17 at 00 :30 Magnesium Hydroxide (Milk Of Mag) 30 ml DAILY PRN PO CONSTIPATION Last administered on 04/17/17 14:30; Admin Dose 30 ML; Start 04/16/17 at 00:30 Bisacodyl (Dulcolax) 5 mg DAILY PRN PO CONSTIPATION; Start 04/16/17 at 00:30 Enoxaparin Sodium (Lovenox) 30 mg DAILY SC Last administered on 04/18/17 08:42 ; Admin Dose 30 MG; Start 04/16/17 at 09:00 Furosemide (Lasix) 20 mg TID IV Last administered on 04/18/17 12:31; Admin Dose 20 MG; Start 04/16/17 at 21:00 Metolazone (Zaroxolyn) 2.5 mg DAILY PO Last administered on 04/18/17 08:25; Admin Dose 2.5 MG; Start 04/17/17 at 09:00 Carvedilol (Coreg) 3.125 mg BID PO Last administered on 04/17/17 20:50; Admin Dose 3.125 MG; Start 04/17/17 at 21:00 Amlodipine Besylate (Norvasc) 2.5 mg DAILY PO Last administered on 04/18/17 08 :25; Admin Dose 2.5 MG; Start 04/17/17 at 12:00 Pantoprazole (Protonix Tab) 40 mg DAILY@06 PO Last administered on 04/18/17 05 :59; Admin Dose 40 MG; Start 04/18/17 at 06:00 Hydralazine HCl 10 mg 10 mg Q6H PRN IV ELEVATED BLOOD PRESSURE Last administered on 04/18/17 01:17; Admin Dose 10 MG; Start 04/18/17 at 01:00 Magnesium Sulfate/ Dextrose (Magnesium Sulfate 1 Gm/D5W) 100 ml @ 100 mls/hr ONCE ONCE IVPB ; Start 04/18/17 at 14:30; Stop 04/18/17 at 15:29; Status Barron Murphy DO Apr 18, 2017 14:35
[2017-04-18] MEDS ORDERED: MAGNESIUM SULFATE 1 GM/D5W 100 ML IVPB ONE (15:30)
--- NOTE | 2017-04-18 19:49 | PN ---
Date/Time of Note Date/Time of Note DATE: 04/18/17 TIME: 19:47 Assessment/Plan VTE Prophylaxis VTE Prophylaxis Intervention: other Lines/Catheters [facility] Saline Lock Urinary Cath still in place: No Assessment/Plan Chief Complaint/Hosp Course IMPRESSION: 1. Acute coronary syndrome, [place] R/O 2. Hypertension. 3. Chronic kidney disease. 4. Atherosclerosis. 5. Patient has lower extremity edema.CH 6. Elevated BNP. 7. Incomplete database. 8. anemia. [address] ABD DIURETIC Problems: Subjective 24 Hr Interval Summary Respiratory: no complaints Gastrointestinal: no complaints Genitourinary: no complaints, No hematuria Exam/Review of Systems Vital Signs Vitals Vital Signs Date Time Temp Pulse Resp B/P Pulse Ox O2 Delivery O2 Flow Rate FiO2 04/18/17 16:25 76 04/18/17 15:12 97.6 18 130/60 97 04/16/17 17:51 Room Air Intake and Output 04/17/17 04/17/17 04/18/17 15:00 23:00 07:00 Intake Total 1000 ml 150 ml Output Total 1700 ml 750 ml Balance -700 ml -600 ml Exam Cardiovascular: regular rate and rhythm Gastrointestinal: bowel sounds (+), soft Extremities: edema (LESS) Results Result Diagram: 04/17/17 0705 04/18/17 0654 Results 24 hrs Laboratory Tests Test 04/18/17 06:54 Sodium Level 141 Potassium Level 3.4 L Chloride Level 94 #L Carbon Dioxide Level 35 H Anion Gap 15 Blood Urea Nitrogen 43 #H Creatinine 2.01 H Glucose Level 111 Calcium Level 9.5 Total Bilirubin 0.3 Direct Bilirubin 0.00 Indirect Bilirubin 0.3 Aspartate Amino Transf (AST/SGOT) 24 Alanine Aminotransferase (ALT/SGPT) 30 Alkaline Phosphatase 102 Total Protein 7.4 Albumin 4.0 Globulin 3.40 H Albumin/Globulin Ratio 1.17 Medications Medications Current Medications Cholecalciferol (Vitamin D) 2,000 unit DAILY PO Last administered on 04/18/17 08:26; Admin Dose 2,000 UNIT; Start 04/16/17 at 09:00 Finasteride (Proscar) 5 mg DAILY PO Last administered on 04/18/17 08:25; Admin Dose 5 MG; Start 04/16/17 at 09:00 Lisinopril (Zestril) 20 mg DAILY PO Last administered on 04/18/17 08:25; Admin Dose 20 MG; Start 04/16/17 at 09:00 Tamsulosin HCl (Flomax) 0.4 mg HS PO Last administered on 04/17/17 20:50; Admin Dose 0.4 MG; Start 04/16/17 at 21:00 Aspirin (Aspirin) 81 mg DAILY PO Last administered on 04/18/17 08:25; Admin Dose 81 MG; Start 04/17/17 at 09:00 Nitroglycerin (Nitroglycerin (Sl Tab) 0.4 Mg) 1 tab Q5M PRN SL CHEST PAIN; Start 04/16/17 at 00:30 Ondansetron HCl (Zofran Inj) 4 mg Q6H PRN IV NAUSEA AND/OR VOMITING; Start at 00:30 Acetaminophen (Tylenol Tab) 650 mg Q6H PRN PO PAIN LEVEL 1-3 OR FEVER Last administered on 04/16/17 17:10; Admin Dose 650 MG; Start 04/16/17 at 00:30 Morphine Sulfate (morphine) 2 mg Q4H PRN IV SEVERE PAIN LEVEL 7-10; Start at 00:30 Docusate Sodium (Colace) 100 mg Q12H PRN PO CONSTIPATION; Start 04/16/17 at 00 :30 Magnesium Hydroxide (Milk Of Mag) 30 ml DAILY PRN PO CONSTIPATION Last administered on 04/17/17 14:30; Admin Dose 30 ML; Start 04/16/17 at 00:30 Bisacodyl (Dulcolax) 5 mg DAILY PRN PO CONSTIPATION; Start 04/16/17 at 00:30 Enoxaparin Sodium (Lovenox) 30 mg DAILY SC Last administered on 04/18/17 08:42 ; Admin Dose 30 MG; Start 04/16/17 at 09:00 Metolazone (Zaroxolyn) 2.5 mg DAILY PO Last administered on 04/18/17 08:25; Admin Dose 2.5 MG; Start 04/17/17 at 09:00 Carvedilol (Coreg) 3.125 mg BID PO Last administered on 04/17/17 20:50; Admin Dose 3.125 MG; Start 04/17/17 at 21:00 Amlodipine Besylate (Norvasc) 2.5 mg DAILY PO Last administered on 04/18/17 08 :25; Admin Dose 2.5 MG; Start 04/17/17 at 12:00 Pantoprazole (Protonix Tab) 40 mg DAILY@06 PO Last administered on 04/18/17 05 :59; Admin Dose 40 MG; Start 04/18/17 at 06:00 Hydralazine HCl (Apresoline) 10 mg Q6H PRN IV sbp>170 Last administered on 04/18 01:17; Admin Dose 10 MG; Start 04/18/17 at 01:00 Furosemide (Lasix) 20 mg BID IV ; Start 04/18/17 at 21:00; Status DAVIS KU MD Apr 18, 2017 19:49
[2017-04-18] MEDS ORDERED: BARIUM SULF 2% 450 ML BTL (BERRY SMOOTHIE) PO ONE (21:00)
[2017-04-18] MEDS: TAMSULOSIN (SR) 0.4 MG CAP PO SCH ×2 (21:00→21:16)
[2017-04-19] VITALS (13 sets, daily range): BP systolic 87–136; BP diastolic 51–77; PULSE 54–69; RESP 18–22
[2017-04-19] MEDS: PANTOPRAZOLE (EC) 40 MG TAB PO SCH (06:00)
[2017-04-19] MEDS: FUROSEMIDE 20 MG INJ IV SCH ×2 (06:00→14:21)
[2017-04-19] MEDS: LISINOPRIL 20 MG TAB PO SCH (09:49)
[2017-04-19] MEDS: ASPIRIN 81 MG TAB PO SCH (09:49)
[2017-04-19] MEDS: METOLAZONE 2.5 MG TAB PO SCH (09:50)
[2017-04-19] MEDS: CHOLECALCIFEROL 2,000 UNIT CAP PO SCH (09:50)
[2017-04-19] MEDS: AMLODIPINE 2.5 MG TAB PO SCH (09:51)
[2017-04-19] MEDS: FINASTERIDE 5 MG TAB PO SCH (09:51)
[2017-04-19] MEDS: ENOXAPARIN 30 MG/0.3 ML SYG SC SCH (09:57)
--- NOTE | 2017-04-19 11:27 | CONS ---
Date/Time of Note Date/Time of Note DATE: 04/19/17 TIME: 11:24 Assessment/Plan Assessment/Plan Additional Assessment/Plan Acute decompensated diastolic congestive heart failure Uncontrolled hypertension, improved Acute kidney injury with history of CKD Mild to moderate aortic stenosis Preserved ejection fraction NSVT -Patient with improvement in symptoms of shortness of breath and lower extremity edema. Creatinine is rising, patient has refused diuretics this morning. Diuretics being managed by our nephrology colleagues. Blood pressure trend overall improved on current antihypertensive medication regimen. Telemetry reviewed with no further episodes of nonsustained ventricular tachycardia. Maintain potassium above 4.0 and magnesium above 2.0. DC planning Consultation Date/Type/Reason Admit Date/Time Apr 18, 2017 at 23:00 Type of Consultation: cv 24 HR Interval Summary Free Text/Dictation Denies shortness of breath, palpitations or dizziness. Overall feeling much better Exam/Review of Systems Vital Signs Vitals Vital Signs Date Time Temp Pulse Resp B/P Pulse Ox O2 Delivery O2 Flow Rate FiO2 04/19/17 08:26 98.0 60 18 132/63 98 04/16/17 17:51 Room Air Intake and Output 04/18/17 04/18/17 04/19/17 15:00 23:00 07:00 Intake Total 950 ml 240 ml Output Total 400 ml 600 ml Balance 550 ml -360 ml Exam No apparent distress Constitutional: alert, oriented Head: normocephalic Respiratory: other (Coarse breath sounds bilaterally, no wheezing) Cardiovascular: other (S1-S2 heard), regular rate and rhythm, systolic murmur Gastrointestinal: bowel sounds, non-tender, soft Extremities: edema (Trace) Results Result Diagram: 04/19/17 0644 04/19/17 0644 Results 24 hrs Laboratory Tests Test 04/18/17 17:00 04/19/17 06:44 Urine Random Creatinine 43.14 Urine Protein/Creatinine Ratio 0.27 Urine Total Protein 12.0 H White Blood Count 11.0 #H Red Blood Count 3.69 L Hemoglobin 10.8 L Hematocrit 34.8 L Mean Corpuscular Volume 94.3 Mean Corpuscular Hemoglobin 29.3 Mean Corpuscular Hemoglobin Concent 31.0 L Red Cell Distribution Width 14.5 Platelet Count 290 # Mean Platelet Volume 10.5 H Neutrophils % 59.2 Lymphocytes % 26.0 Monocytes % 11.2 H Eosinophils % 2.8 Basophils % 0.5 Nucleated Red Blood Cells % 0.0 Neutrophils # 6.5 Lymphocytes # 2.9 Monocytes # 1.2 H Eosinophils # 0.3 Basophils # 0.1 Nucleated Red Blood Cells # 0.0 Sodium Level 139 Potassium Level 4.6 Chloride Level 92 L Carbon Dioxide Level 33 H Anion Gap 19 H Blood Urea Nitrogen 65 H Creatinine 2.65 H Glucose Level 105 Calcium Level 9.4 Magnesium Level 3.0 H Medications Medications Current Medications Cholecalciferol (Vitamin D) 2,000 unit DAILY PO Last administered on 04/19/17 09:50; Admin Dose 2,000 UNIT; Start 04/16/17 at 09:00 Finasteride (Proscar) 5 mg DAILY PO Last administered on 04/19/17 09:51; Admin Dose 5 MG; Start 04/16/17 at 09:00 Lisinopril (Zestril) 20 mg DAILY PO Last administered on 04/19/17 09:49; Admin Dose 20 MG; Start 04/16/17 at 09:00 Tamsulosin HCl (Flomax) 0.4 mg HS PO Last administered on 04/17/17 20:50; Admin Dose 0.4 MG; Start 04/16/17 at 21:00 Aspirin (Aspirin) 81 mg DAILY PO Last administered on 04/19/17 09:49; Admin Dose 81 MG; Start 04/17/17 at 09:00 Nitroglycerin (Nitroglycerin (Sl Tab) 0.4 Mg) 1 tab Q5M PRN SL CHEST PAIN; Start 04/16/17 at 00:30 Ondansetron HCl (Zofran Inj) 4 mg Q6H PRN IV NAUSEA AND/OR VOMITING; Start at 00:30 Acetaminophen (Tylenol Tab) 650 mg Q6H PRN PO PAIN LEVEL 1-3 OR FEVER Last administered on 04/16/17 17:10; Admin Dose 650 MG; Start 04/16/17 at 00:30 Morphine Sulfate (morphine) 2 mg Q4H PRN IV SEVERE PAIN LEVEL 7-10; Start at 00:30 Docusate Sodium (Colace) 100 mg Q12H PRN PO CONSTIPATION; Start 04/16/17 at 00 :30 Magnesium Hydroxide (Milk Of Mag) 30 ml DAILY PRN PO CONSTIPATION Last administered on 04/17/17 14:30; Admin Dose 30 ML; Start 04/16/17 at 00:30 Bisacodyl (Dulcolax) 5 mg DAILY PRN PO CONSTIPATION; Start 04/16/17 at 00:30 Enoxaparin Sodium (Lovenox) 30 mg DAILY SC Last administered on 04/19/17 09:57 ; Admin Dose 30 MG; Start 04/16/17 at 09:00 Metolazone (Zaroxolyn) 2.5 mg DAILY PO Last administered on 04/19/17 09:50; Admin Dose 2.5 MG; Start 04/17/17 at 09:00 Carvedilol (Coreg) 3.125 mg BID PO Last administered on 04/19/17 09:52; Admin Dose 3.125 MG; Start 04/17/17 at 21:00 Amlodipine Besylate (Norvasc) 2.5 mg DAILY PO Last administered on 04/19/17 09 :51; Admin Dose 2.5 MG; Start 04/17/17 at 12:00 Pantoprazole (Protonix Tab) 40 mg DAILY@06 PO Last administered on 04/18/17 05 :59; Admin Dose 40 MG; Start 04/18/17 at 06:00 Hydralazine HCl (Apresoline) 10 mg Q6H PRN IV sbp>170 Last administered on 04/18 01:17; Admin Dose 10 MG; Start 04/18/17 at 01:00 Barron Hilliard DO Apr 19, 2017 11:27
[2017-04-19] MEDS ORDERED: BARIUM SULF 2% 450 ML BTL (BERRY SMOOTHIE) PO ONE ×2 (14:30→17:00)
--- NOTE | 2017-04-19 16:55 | PN ---
Date/Time of Note Date/Time of Note DATE: 04/19/17 TIME: 16:54 Assessment/Plan VTE Prophylaxis VTE Prophylaxis Intervention: other Lines/Catheters [facility] Saline Lock Urinary Cath still in place: No Assessment/Plan Chief Complaint/Hosp Course IMPRESSION: 1. Acute coronary syndrome, [place] R/O 2. Hypertension. 3. Chronic kidney disease. 4. Atherosclerosis. 5. Patient has lower extremity edema.CH 6. Elevated BNP. 7. Incomplete database. 8. anemia. [address] ABD refused by pt DIURETIC Problems: Subjective 24 Hr Interval Summary Respiratory: no complaints Cardiovascular: no complaints Gastrointestinal: no complaints Exam/Review of Systems Vital Signs Vitals Vital Signs Date Time Temp Pulse Resp B/P Pulse Ox O2 Delivery O2 Flow Rate FiO2 04/19/17 16:06 63 04/19/17 16:01 98.0 18 122/68 98 04/16/17 17:51 Room Air Intake and Output 04/18/17 04/18/17 04/19/17 15:00 23:00 07:00 Intake Total 950 ml 240 ml Output Total 400 ml 600 ml Balance 550 ml -360 ml Exam Respiratory: clear to auscultation Cardiovascular: regular rate and rhythm Gastrointestinal: soft Musculoskeletal: nl extremities to inspection Extremities: normal pulses Results Result Diagram: 04/19/1744 04/19/17 0644 Results 24 hrs Laboratory Tests Test 04/18/17 17:00 04/19/17 06:44 Urine Random Creatinine 43.14 Urine Protein/Creatinine Ratio 0.27 Urine Total Protein 12.0 H White Blood Count 11.0 #H Red Blood Count 3.69 L Hemoglobin 10.8 L Hematocrit 34.8 L Mean Corpuscular Volume 94.3 Mean Corpuscular Hemoglobin 29.3 Mean Corpuscular Hemoglobin Concent 31.0 L Red Cell Distribution Width 14.5 Platelet Count 290 # Mean Platelet Volume 10.5 H Neutrophils % 59.2 Lymphocytes % 26.0 Monocytes % 11.2 H Eosinophils % 2.8 Basophils % 0.5 Nucleated Red Blood Cells % 0.0 Neutrophils # 6.5 Lymphocytes # 2.9 Monocytes # 1.2 H Eosinophils # 0.3 Basophils # 0.1 Nucleated Red Blood Cells # 0.0 Sodium Level 139 Potassium Level 4.6 Chloride Level 92 L Carbon Dioxide Level 33 H Anion Gap 19 H Blood Urea Nitrogen 65 H Creatinine 2.65 H Glucose Level 105 Calcium Level 9.4 Magnesium Level 3.0 H Medications Medications Current Medications Cholecalciferol (Vitamin D) 2,000 unit DAILY PO Last administered on 04/19/17 09:50; Admin Dose 2,000 UNIT; Start 04/16/17 at 09:00 Finasteride (Proscar) 5 mg DAILY PO Last administered on 04/19/17 09:51; Admin Dose 5 MG; Start 04/16/17 at 09:00 Lisinopril (Zestril) 20 mg DAILY PO Last administered on 04/19/17 09:49; Admin Dose 20 MG; Start 04/16/17 at 09:00 Tamsulosin HCl (Flomax) 0.4 mg HS PO Last administered on 04/17/17 20:50; Admin Dose 0.4 MG; Start 04/16/17 at 21:00 Aspirin (Aspirin) 81 mg DAILY PO Last administered on 04/19/17 09:49; Admin Dose 81 MG; Start 04/17/17 at 09:00 Nitroglycerin (Nitroglycerin (Sl Tab) 0.4 Mg) 1 tab Q5M PRN SL CHEST PAIN; Start 04/16/17 at 00:30 Ondansetron HCl (Zofran Inj) 4 mg Q6H PRN IV NAUSEA AND/OR VOMITING; Start at 00:30 Acetaminophen (Tylenol Tab) 650 mg Q6H PRN PO PAIN LEVEL 1-3 OR FEVER Last administered on 04/16/17 17:10; Admin Dose 650 MG; Start 04/16/17 at 00:30 Morphine Sulfate (morphine) 2 mg Q4H PRN IV SEVERE PAIN LEVEL 7-10; Start at 00:30 Docusate Sodium (Colace) 100 mg Q12H PRN PO CONSTIPATION; Start 04/16/17 at 00 :30 Magnesium Hydroxide (Milk Of Mag) 30 ml DAILY PRN PO CONSTIPATION Last administered on 04/17/17 14:30; Admin Dose 30 ML; Start 04/16/17 at 00:30 Bisacodyl (Dulcolax) 5 mg DAILY PRN PO CONSTIPATION; Start 04/16/17 at 00:30 Enoxaparin Sodium (Lovenox) 30 mg DAILY SC Last administered on 04/19/17 09:57 ; Admin Dose 30 MG; Start 04/16/17 at 09:00 Carvedilol (Coreg) 3.125 mg BID PO Last administered on 04/19/17 09:52; Admin Dose 3.125 MG; Start 04/17/17 at 21:00 Amlodipine Besylate (Norvasc) 2.5 mg DAILY PO Last administered on 04/19/17 09 :51; Admin Dose 2.5 MG; Start 04/17/17 at 12:00 Pantoprazole (Protonix Tab) 40 mg DAILY@06 PO Last administered on 04/18/17 05 :59; Admin Dose 40 MG; Start 04/18/17 at 06:00 Hydralazine HCl (Apresoline) 10 mg Q6H PRN IV sbp>170 Last administered on 04/18 01:17; Admin Dose 10 MG; Start 04/18/17 at 01:00 DAVIS KIRBY MD Apr 19, 2017 16:55
[2017-04-19] MEDS: TAMSULOSIN (SR) 0.4 MG CAP PO SCH (21:22)
[2017-04-20] VITALS (8 sets, daily range): BP systolic 108–118; BP diastolic 52–57; PULSE 56–65; RESP 17–20
[2017-04-20] MEDS ORDERED: FUROSEMIDE 20 MG INJ IV SCH (06:00)
[2017-04-20] MEDS: PANTOPRAZOLE (EC) 40 MG TAB PO SCH (06:06)
--- NOTE | 2017-04-20 08:14 | RADRPT ---
PROCEDURE: CT abdomen and pelvis without intravenous contrast. CLINICAL INDICATION: Abdominal distension TECHNIQUE: CT scan of the abdomen and pelvis without intravenous but with oral contrast was perfor med and is reconstructed at 3 mm contiguous axial intervals from the dome of the diaphragm to the in ferior pubic rami.. The patient was scanned without intravenous contrast. Sagittal and coronal ref ormatted images were obtained from the axial source images. The calculated radiation dose measures 4 58 mGy centimeters. The CTDI measures 8 mGy. Individualized dose optimization technique was used for the performance of this exam. This included 1. Automated exposure control. 2. Adjustment of the mA and / or kV according to the patient's size. 3. Use of iterative reconstructed technique. COMPARISON: None. FINDINGS: The lung bases are clear of any infiltrate or nodule. No pleural effusion is seen. There is atelect asis or fibrosis at the lung bases. There is a tiny pericardial effusion. There are coronary artery calcifications. The liver is of normal size, contour and attenuation with no mass or ductal dilatation. No gallston es are visualized. No splenic, adrenal or pancreatic abnormalities present. Kidneys are of normal size and contour. No hydronephrosis, calculus or masses seen. Ureters are o f normal course and caliber with no stone. No bladder mass or stone is present. There is mass effec t on the base of the bladder secondary to an enlarged prostate. The capsule appears to be intact. There is no aneurysm. There are vascular calcifications. No adenopathy is present. No bowel mass or obstruction is present. The appendix is no not confidently visualized, however, no inflamed appendix is seen.. No phlegmon, ascites or pneumoperitoneum is visualized. Hardware is present in the left hip. The osseous structures are otherwise intact. IMPRESSION: No evidence of urolithiasis, obstructive uropathy, diverticulitis or appendicitis. Tiny pericardial effusion. Bibasilar lung fibrosis versus plate-like atelectasis. Vascular calcifications. Enlarged prostate - correlation with PSA is suggested. .Chuy Mortensen MD, MD Date Time Electronically viewed and signed by .Chuy Mortensen MD, on 04/20/2017 08:13 .A/
[2017-04-20] MEDS: FINASTERIDE 5 MG TAB PO SCH (09:30)
[2017-04-20] MEDS: AMLODIPINE 2.5 MG TAB PO SCH (09:30)
[2017-04-20] MEDS: ASPIRIN 81 MG TAB PO SCH (09:30)
[2017-04-20] MEDS: LISINOPRIL 20 MG TAB PO SCH (09:31)
[2017-04-20] MEDS: CHOLECALCIFEROL 2,000 UNIT CAP PO SCH (09:31)
[2017-04-20] MEDS: ENOXAPARIN 30 MG/0.3 ML SYG SC SCH (10:06)
--- NOTE | 2017-04-20 14:02 | PN ---
Date/Time of Note Date/Time of Note DATE: 04/20/17 TIME: 14:00 Assessment/Plan VTE Prophylaxis VTE Prophylaxis Intervention: SCD's Lines/Catheters IV [facility] Saline Lock Urinary Cath still in place: No Assessment/Plan Assessment/Plan Acute decompensated diastolic congestive heart failure Uncontrolled hypertension, improved Acute kidney injury with history of CKD Mild to moderate aortic stenosis Preserved ejection fraction NSVT -Patient with improvement in symptoms of shortness of breath and lower extremity edema. Diuretics being managed by our nephrology colleagues. Blood pressure trend overall improved on current antihypertensive medication regimen. Telemetry reviewed with no further episodes of nonsustained ventricular tachycardia. Maintain potassium above 4.0 and magnesium above 2.0. DC planning Subjective 24 Hr Interval Summary Free Text/Dictation The patient with no cahnge Exam/Review of Systems Vital Signs Vitals Vital Signs Date Time Temp Pulse Resp B/P Pulse Ox O2 Delivery O2 Flow Rate FiO2 04/20/17 12:07 59 04/20/17 11:24 98.5 17 118/54 95 04/16/17 17:51 Room Air Intake and Output 04/19/17 04/19/17 04/20/17 15:00 23:00 07:00 Intake Total 650 ml 500 ml Output Total 800 ml 700 ml Balance -150 ml -200 ml Results Result Diagram: 04/19/17 0644 04/20/17 0520 Results 24 hrs Laboratory Tests Test 04/20/17 05:20 Sodium Level 137 Potassium Level 3.8 Chloride Level 93 L Carbon Dioxide Level 31 Anion Gap 17 H Blood Urea Nitrogen 80 H Creatinine 3.08 H Glucose Level 108 Calcium Level 8.8 Total Bilirubin 0.1 L Direct Bilirubin 0.00 Indirect Bilirubin 0.1 Aspartate Amino Transf (AST/SGOT) 32 Alanine Aminotransferase (ALT/SGPT) 40 Alkaline Phosphatase 86 Total Protein 6.5 Albumin 3.5 Globulin 3.00 Albumin/Globulin Ratio 1.16 Medications Medications Current Medications Cholecalciferol (Vitamin D) 2,000 unit DAILY PO Last administered on 04/20/17 09:31; Admin Dose 2,000 UNIT; Start 04/16/17 at 09:00 Finasteride (Proscar) 5 mg DAILY PO Last administered on 04/20/17 09:30; Admin Dose 5 MG; Start 04/16/17 at 09:00 Lisinopril (Zestril) 20 mg DAILY PO Last administered on 04/20/17 09:31; Admin Dose 20 MG; Start 04/16/17 at 09:00 Tamsulosin HCl (Flomax) 0.4 mg HS PO Last administered on 04/19/17 21:22; Admin Dose 0.4 MG; Start 04/16/17 at 21:00 Aspirin (Aspirin) 81 mg DAILY PO Last administered on 04/20/17 09:30; Admin Dose 81 MG; Start 04/17/17 at 09:00 Nitroglycerin (Nitroglycerin (Sl Tab) 0.4 Mg) 1 tab Q5M PRN SL CHEST PAIN; Start 04/16/17 at 00:30 Ondansetron HCl (Zofran Inj) 4 mg Q6H PRN IV NAUSEA AND/OR VOMITING; Start at 00:30 Acetaminophen (Tylenol Tab) 650 mg Q6H PRN PO PAIN LEVEL 1-3 OR FEVER Last administered on 04/16/17 17:10; Admin Dose 650 MG; Start 04/16/17 at 00:30 Morphine Sulfate (morphine) 2 mg Q4H PRN IV SEVERE PAIN LEVEL 7-10; Start at 00:30 Docusate Sodium (Colace) 100 mg Q12H PRN PO CONSTIPATION; Start 04/16/17 at 00 :30 Magnesium Hydroxide (Milk Of Mag) 30 ml DAILY PRN PO CONSTIPATION Last administered on 04/17/17 14:30; Admin Dose 30 ML; Start 04/16/17 at 00:30 Bisacodyl (Dulcolax) 5 mg DAILY PRN PO CONSTIPATION; Start 04/16/17 at 00:30 Enoxaparin Sodium (Lovenox) 30 mg DAILY SC Last administered on 04/20/17 10:06 ; Admin Dose 30 MG; Start 04/16/17 at 09:00 Carvedilol (Coreg) 3.125 mg BID PO Last administered on 04/20/17 09:31; Admin Dose 3.125 MG; Start 04/17/17 at 21:00 Amlodipine Besylate (Norvasc) 2.5 mg DAILY PO Last administered on 04/20/17 09 :30; Admin Dose 2.5 MG; Start 04/17/17 at 12:00 Pantoprazole (Protonix Tab) 40 mg DAILY@06 PO Last administered on 04/20/17 06 :06; Admin Dose 40 MG; Start 04/18/17 at 06:00 Hydralazine HCl (Apresoline) 10 mg Q6H PRN IV sbp>170 Last administered on 04/18 01:17; Admin Dose 10 MG; Start 04/18/17 at 01:00 Furosemide (Lasix) 20 mg DAILY@06 IV Last administered on 04/20/17 06:06; Admin Dose 20 MG; Start 04/20/17 at 06:00 FRANKLIN DEGROOT MD Apr 20, 2017 14:02
--- NOTE | 2017-04-20 14:09 | PN ---
Date/Time of Note Date/Time of Note DATE: 04/20/17 TIME: 14:08 Assessment/Plan VTE Prophylaxis VTE Prophylaxis Intervention: ambulation Lines/Catheters IV [facility] Type [facility]from [facility] Saline Lock Urinary Cath still in place: No Assessment/Plan Chief Complaint/Hosp Course 1. Acute coronary syndrome, [place] R/O 2. Hypertension. 3. Chronic kidney disease. 4. Atherosclerosis. 5. Patient has lower extremity edema. 6. Elevated BNP. 7. Anemia 8. anemia. 9. CT scan shows :'No evidence of urolithiasis, obstructive uropathy, diverticulitis or appendicitis. Tiny pericardial effusion. Bibasilar lung fibrosis versus plate-like atelectasis. Vascular calcifications. Enlarged prostate - correlation with PSA is suggested. " 10 Non compliance ' Problems: Assessment/Plan 1. continue diuretics 2. CT reviewed BPH 3/ D.c planning, cleared by dr Flores Subjective 24 Hr Interval Summary Constitutional: improved, no complaints Musculoskeletal: restricted range of motion Exam/Review of Systems Vital Signs Vitals Vital Signs Date Time Temp Pulse Resp B/P Pulse Ox O2 Delivery O2 Flow Rate FiO2 04/20/17 12:07 59 04/20/17 11:24 98.5 17 118/54 95 04/16/17 17:51 Room Air Intake and Output 04/19/17 04/19/17 04/20/17 15:00 23:00 07:00 Intake Total 650 ml 500 ml Output Total 800 ml 700 ml Balance -150 ml -200 ml Exam Constitutional: alert, oriented Neck: supple Cardiovascular: regular rate and rhythm Gastrointestinal: soft Results Result Diagram: 04/19/17 0644 04/20/17 0520 Results 24 hrs Laboratory Tests Test 04/20/17 05:20 Sodium Level 137 Potassium Level 3.8 Chloride Level 93 L Carbon Dioxide Level 31 Anion Gap 17 H Blood Urea Nitrogen 80 H Creatinine 3.08 H Glucose Level 108 Calcium Level 8.8 Total Bilirubin 0.1 L Direct Bilirubin 0.00 Indirect Bilirubin 0.1 Aspartate Amino Transf (AST/SGOT) 32 Alanine Aminotransferase (ALT/SGPT) 40 Alkaline Phosphatase 86 Total Protein 6.5 Albumin 3.5 Globulin 3.00 Albumin/Globulin Ratio 1.16 Medications Medications Current Medications Cholecalciferol (Vitamin D) 2,000 unit DAILY PO Last administered on 04/20/17 09:31; Admin Dose 2,000 UNIT; Start 04/16/17 at 09:00 Finasteride (Proscar) 5 mg DAILY PO Last administered on 04/20/17 09:30; Admin Dose 5 MG; Start 04/16/17 at 09:00 Lisinopril (Zestril) 20 mg DAILY PO Last administered on 04/20/17 09:31; Admin Dose 20 MG; Start 04/16/17 at 09:00 Tamsulosin HCl (Flomax) 0.4 mg HS PO Last administered on 04/19/17 21:22; Admin Dose 0.4 MG; Start 04/16/17 at 21:00 Aspirin (Aspirin) 81 mg DAILY PO Last administered on 04/20/17 09:30; Admin Dose 81 MG; Start 04/17/17 at 09:00 Nitroglycerin (Nitroglycerin (Sl Tab) 0.4 Mg) 1 tab Q5M PRN SL CHEST PAIN; Start 04/16/17 at 00:30 Ondansetron HCl (Zofran Inj) 4 mg Q6H PRN IV NAUSEA AND/OR VOMITING; Start at 00:30 Acetaminophen (Tylenol Tab) 650 mg Q6H PRN PO PAIN LEVEL 1-3 OR FEVER Last administered on 04/16/17 17:10; Admin Dose 650 MG; Start 04/16/17 at 00:30 Morphine Sulfate (morphine) 2 mg Q4H PRN IV SEVERE PAIN LEVEL 7-10; Start at 00:30 Docusate Sodium (Colace) 100 mg Q12H PRN PO CONSTIPATION; Start 04/16/17 at 00 :30 Magnesium Hydroxide (Milk Of Mag) 30 ml DAILY PRN PO CONSTIPATION Last administered on 04/17/17 14:30; Admin Dose 30 ML; Start 04/16/17 at 00:30 Bisacodyl (Dulcolax) 5 mg DAILY PRN PO CONSTIPATION; Start 04/16/17 at 00:30 Enoxaparin Sodium (Lovenox) 30 mg DAILY SC Last administered on 04/20/17 10:06 ; Admin Dose 30 MG; Start 04/16/17 at 09:00 Carvedilol (Coreg) 3.125 mg BID PO Last administered on 04/20/17 09:31; Admin Dose 3.125 MG; Start 04/17/17 at 21:00 Amlodipine Besylate (Norvasc) 2.5 mg DAILY PO Last administered on 04/20/17 09 :30; Admin Dose 2.5 MG; Start 04/17/17 at 12:00 Pantoprazole (Protonix Tab) 40 mg DAILY@06 PO Last administered on 04/20/17 06 :06; Admin Dose 40 MG; Start 04/18/17 at 06:00 Hydralazine HCl (Apresoline) 10 mg Q6H PRN IV sbp>170 Last administered on 04/18 01:17; Admin Dose 10 MG; Start 04/18/17 at 01:00 Furosemide (Lasix) 20 mg DAILY@06 IV Last administered on 04/20/17 06:06; Admin Dose 20 MG; Start 04/20/17 at 06:00 ALEKSANDR NOE Apr 20, 2017 14:09
--- NOTE | 2017-04-20 14:36 | PDOCDIS ---
Discharge Instructions CONDITION Patient Condition: Stable HOME CARE INSTRUCTIONS: Diet Instructions: Low Fat /Cholesterol ACTIVITY: Activity Restrictions: Slowly Increase Activity Bathing Restrictions: Shower FOLLOW UP/APPOINTMENTS Follow-up Plan [address] Momin office, no lasix intake SCHOOL/WORK RELEASE May return to School/Work with: With Restrictions ALEKSANDR NOE Apr 20, 2017 14:36
[2017-04-20] MEDS ORDERED: CARV3.1260 PO (14:38)
--- NOTE | 2017-04-21 16:09 | DS ---
Date/Time of Note Date/Time of Note DATE: 04/21/17 TIME: 16:08 Discharge Summary Admission/Discharge Info Admit Date/Time Apr 18, 2017 at 23:00 Discharge Date/Time Apr 20, 2017 at 15:54 Patient Condition: Stable Consults Dr Hilliard, cardiology Procedures Echocardiogram Hospital Course The patient is an 86-year-old male who has a history of hypertension, aortic stenosis, history of CKD, anemia, history of gynecomastia. Presented with shortness of breath, lower extremity edema and is being admitted for further management. Patient has worsening lower extremity edema, hematocrit 32.8 in the past, creatinine 1.46 in the past. The patient is now noted to have chest x -ray, shows atherosclerosis, mild left basilar atelectasis, cardiomegaly, left shoulder reverse arthroplasty. IMPRESSION: 1. Acute coronary syndrome, [place] R/O 2. Hypertension. 3. Chronic kidney disease. 4. Atherosclerosis. 5. Patient has lower extremity edema. 6. Elevated BNP. 7. Anemia 8. anemia. 9. CT scan shows :'No evidence of urolithiasis, obstructive uropathy, diverticulitis or appendicitis. Tiny pericardial effusion. Bibasilar lung fibrosis versus plate-like atelectasis. Vascular calcifications. Enlarged prostate - correlation with PSA is suggested. " 10. Non compliance. During hospitalization his condition improved, but CR got worse, 3.08. Pt was instructed do not use furosemide and was discharged home with set up appointment in dr Momin office in a week. ' Home Meds Active Scripts Carvedilol* (Carvedilol*) 3.125 Mg Tablet, 3.125 MG PO BID for 30 Days, TAB Prov:ALEKSANDR NOE 04/20/17 Docusate Sodium (Dok) 100 Mg Capsule, 100 MG PO Q12H Y for CONSTIPATION for 28 Days, CAP Prov:DAVIS MOMIN MD 12/16/16 Reported Medications Tamsulosin Hcl* (Tamsulosin Hcl*) 0.4 Mg Cap.er.24h, 0.4 MG PO HS, CAP 04/15/17 Multivitamin W-Minerals/Lutein (CENTRUM SILVER ULTRA MEN'S TAB) 1 Each Tablet, 1 EACH PO, TAB 04/15/17 Cholecalciferol (Vitamin D3) (VITAMIN D-3) 2,000 Unit Capsule, 2000 UNIT PO DAILY, CAP 04/15/17 Aspirin* (Aspirin* Chew) 81 Mg Tab.chew, 81 MG PO DAILY, TAB.CHEW 12/10/16 Lisinopril* (Lisinopril*) 20 Mg Tablet, 20 MG PO DAILY, #30 TAB 12/10/16 Finasteride* (Finasteride*) 5 Mg Tablet, 5 MG PO DAILY, TAB 03/01/14 Discontinued Reported Medications Docusate Sodium* (Docusate Sodium*) 100 Mg Capsule, 100 MG PO Q12H for CONSTIPATION, #30 CAP 04/15/17 Furosemide* (Furosemide*) 20 Mg Tablet, 20 MG PO BID, #30 TAB 04/15/17 Baclofen* (Baclofen*) 10 Mg Tablet, 10 MG PO BID, TAB 12/10/16 Discontinued Scripts Carvedilol* (Carvedilol*) 6.25 Mg Tablet, 6.25 MG PO BID for 28 Days, TAB Prov:DAVIS MOMIN MD 12/16/16 Carvedilol* (Coreg*) 6.25 Mg Tablet, 6.25 MG PO BID, #60 TAB Prov:DAVIS MOMIN MD 12/16/16 Amlodipine Besylate* (Amlodipine Besylate*) 5 Mg Tablet, 5 MG PO BID for 28 Days , TAB Prov:DAVIS MOMIN MD 12/16/16 Levofloxacin* (Levaquin*) 500 Mg Tablet, 500 MG PO DAILY@06 for 7 Days, TAB Prov:DAVIS MOMIN MD 12/16/16 Meclizine Hcl* (Meclizine Hcl*) 25 Mg Tablet, 25 MG PO TID Y for veritigo for 28 Days, TAB Prov:DAVIS MOMIN MD 12/16/16 Follow-up Plan [address] Momin office, no lasix intake Primary Care Provider Not On Staff Doctor ALEKSANDR NOE Apr 21, 2017 16:09
== END 2017-04-20 15:54 | disposition home or self-care (01) | DRG 291 ==
LOC: E/R 21:06 → MS3 04-16 00:04 → TEL 04-16 17:36 → OBSVTOIN 04-18 23:00
PROVIDERS: ADMIT Internal Medicine Nephrology; ATTEND Internal Medicine Nephrology
DX: I13.0 Hypertensive heart and chronic kidney disease with heart failure and stage 1 through stage 4 chronic kidney disease, or unspecified chronic kidney disease (principal); I50.33 Acute on chronic diastolic (congestive) heart failure; N17.9 Acute kidney failure, unspecified; I48.2 Chronic atrial fibrillation; I24.9 Acute ischemic heart disease, unspecified; I47.1 Supraventricular tachycardia; D64.9 Anemia, unspecified; E78.5 Hyperlipidemia, unspecified; N18.9 Chronic kidney disease, unspecified; I35.0 Nonrheumatic aortic (valve) stenosis; I25.10 Atherosclerotic heart disease of native coronary artery without angina pectoris; E87.6 Hypokalemia; Z91.14 Patient's other noncompliance with medication regimen; Z87.891 Personal history of nicotine dependence
CPT/HCPCS: 36415; 71010; 74176; 80048; 80053; 80061; 81003; 82570; 83735; 83880; 84484; 85025; 85610; 85730; 93005; 93306; 96374; 96375; 99217; J1940; C9113; G0378; J0360; J1650; J2270; J2405; J3475